=== PATIENT | male | born 1960 | race Caucasian/White ===

== ENCOUNTER 2018-11-17 16:17 | Inpatient (IN) ==
[~2018-11-17 16:17] MED LIST: ASPIRIN PO ONE; ASPIRIN PR ONE
[2018-11-17] MEDS ORDERED: LOPRESSOR ONE (16:25)
[2018-11-17] MEDS ORDERED: LOPRESSOR IV ONE (16:28)
[2018-11-17] MEDS ORDERED: ZOFRAN ONE (16:30)
[2018-11-17] MEDS ORDERED: G.I. COCKTAIL ONE (16:30)
[2018-11-17] MEDS ORDERED: DILAUDID ONE (16:30)
[2018-11-17] MEDS ORDERED: G.I. COCKTAIL PO ONE (16:32)
[2018-11-17] MEDS ORDERED: ZOFRAN IV ONE (16:32)
[2018-11-17] MEDS ORDERED: DILAUDID IV ONE ×2 (16:32→17:12)
[2018-11-17] MEDS ORDERED: NS 1,000 ML ONE (16:33)
[2018-11-17] MEDS ORDERED: NS 100 ML IV ONE (16:34)
[2018-11-17 16:42] LABS: BASO# 0.02 X1000 (0.0-0.2); BASO% 0.1 % (0.0-0.8); HEMATOCRIT 52.8 % (42.0-52.0); HEMOGLOBIN 17.6 g/dL (14.0-18.0); IMM GRAN# 0.03 X1000 (0.0-0.04); IMM GRAN% 0.2 % (0.0-0.5); LYMPH# 1.08 X1000 (1.2-3.4); LYMPH% 7.1 % (20.5-51.1); MCHC 33.3 g/dL (33-37); MCV 90.1 FL (81-99); MONO# 1.18 X1000 (0.11-0.59); MONO% 7.8 % (1.7-9.3); MPV 11.3 FL (7.4-10.4); NEUT# 12.84 X1000 (1.4-6.5); NEUT% 84.8 % (42.2-75.2); PLT 274 X1000 (130-400); RBC 5.86 XMIL (4.7-6.1); RDW 16.1 % (11.5-14.5); WBC 15.15 X1000 (4.8-10.8)
[2018-11-17 17:45] LABS: INR 1.34; PROTIME 17.3 Seconds (11.0-16.0); PTT 31.4 Seconds (22.3-41.8)
[2018-11-17 17:49] LABS: ALBUMIN 3.8 g/dL (3.5-5.0); CALCIUM 8.9 mg/dL (8.8-10.2); CREATININE 1.3 mg/dL (0.7-1.2); POTASSIUM 3.5 mmol/L (3.5-5.1); TOTAL BILIRUBIN 2.5 mg/dL (0.20-1.00); TOTAL PROTEIN 6.3 g/dL (6.3-8.3)
[2018-11-17] MEDS ORDERED: NS 1,000 ML IV ONE ×3 (17:57→23:01)
[2018-11-17] MEDS ORDERED: ZOSYN 3.375 GM in NS 50 ML IV ONE ×2 (17:57→22:00)
[2018-11-17 18:14] LABS: CK INDEX 1.8 (0.0-2.5); CK-MB 6.04 ng/mL (0.0-5.0)
[2018-11-17] MEDS ORDERED: LASIX IV ONE (18:17)
--- NOTE | 2018-11-17 18:23 | Diag Imaging Result Doc PS360 ---
EXAM: CHEST-2 VIEWS 11/17/2018 HISTORY: epigastric pain TECHNIQUE: PA and lateral chest COMMENT: There are platelike atelectatic changes in both lung bases. The heart size is enlarged. There may be small pleural effusions bilaterally. Compared to 12/24/2014 the atelectasis cardiomegaly and pleural effusions were not present. IMPRESSION: Cardiomegaly and small pleural effusions. Bibasilar atelectasis. Electronically signed by Reggie Parker 11/17/2018 6:21 PM
--- NOTE | 2018-11-17 18:59 | Diag Imaging Result Doc PS360 ---
EXAM: CT ABD/PELVIS W/IV CONT ONLY 11/17/2018 HISTORY: epigastric pain TECHNIQUE: This exam was performed using automated exposure control, adjustment of mA or kV according to patient size, and/or use of iterative reconstruction technique. COMMENT: The current examination is compared with the previous abdominal CTA of 02/19/2015. There are bilateral pleural effusions. There are apparent low density filling defects in the apex of the left ventricle which were not present on the previous examination and may represent mural thrombi. Further evaluation with echocardiography is recommended. There is subsegmental atelectasis in both lower lobes. There is ascites. The liver is inhomogeneous the hypodense particularly the right lobe. The spleen is not enlarged. The adrenal glands are not enlarged. The pancreas is unremarkable in appearance. The gallbladder is not distended. The abdominal aorta is not distended and there are a few calcifications in the aorta. There is no evidence of aneurysm. There is some questionable stenosis of the left main renal artery. There is occlusion of the superior mesenteric artery best seen on image 57. It is possible this is due to embolism. This was not the case on the previous study. There is some questionable mucosal thickening of jejunal loops in the left abdomen. There is increased mucosal enhancement in the proximal jejunum and duodenum compared to the remainder of the small bowel. There is no evidence of nephrolithiasis or hydronephrosis. There are some cortical scars present in the left kidney. There is anasarca with subcutaneous edema. There is no evidence of bowel obstruction. The hepatic changes, anasarca, pleural effusions and ascites were not present at the time the previous study. Pelvis: There is a fat-containing umbilical hernia. There is diverticulosis of the sigmoid colon without evidence of acute diverticulitis. There is no evidence of appendicitis. The urinary bladder is not distended. There is no evidence of significant adenopathy. There is a bone island in the sacrum. The appearance of the regional skeleton has not changed significantly since the previous study. IMPRESSION: Possible mural thrombi in the left ventricle. 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 Anasarca, pleural effusions, ascites, possible small bowel ischemia primarily affecting the distal jejunum and ileum. Hepatic steatosis. The findings were discussed with Angel Christian DO at 11/17/2018 6:57 PM. Electronically signed by Reggie Parker 11/17/2018 6:57 PM
--- NOTE | 2018-11-17 19:38 | PROVIDER DOCUMENTATION ---
This chart was entered by Didi Alvarenga Scribe, acting as scribe for Angel Christian DO. HPI-General Adult - General Chief Complaint: Abdominal Pain Stated Complaint: abd pain Time Seen by Provider: 11/17/18 16:33 Source: patient Allergies/Adverse Reactions: Patient Allergies Allergy/AdvReac Type Severity Reaction Status Date / Time No Known Allergies Allergy Verified 11/17/18 16:16 Home Medications: Home Medication List Medication Instructions Recorded Confirmed Last Taken Type NK [No Home Medications] 11/17/18 11/17/18 Unknown History - History of Present Illness -Gen Adult Nature of Presenting Problems: 58 y/o male presents to the ED via EMS with complaint of severe abdominal pain times two days worsening for the past 2-3 hours with bloating and lack of oral intake due to feeling of fullness. He states he had a small bowel movement this am with bright red blood. The patient has a history of umbilical hernia and history of peptic ulcer 6-8 years ago. The patient also gives a history of hypertension but he has not taken his medication for this for the past year. The patient's blood pressure was 160/128, pulse 141, and respiratory rate also elevated at 34 on arrival. No lung or cardiac history. NKDA. Location of Pain/Injury: reports: abdomen Pain Radiation: reports: no radiation Quality of Pain: reports: fullness Onset/Duration: reports: 2 days ago Timing: reports: getting worse Modifying Factors: worse with: eating, palpation Associated Symptoms: reports: loss of appetite. denies: cough, fever/chills, h eadaches, nausea, shortness of breath, vomiting Similar Symptoms Previously?: No Recently seen or treated by another doctor?: No Review of Systems - Adult - REVIEW OF SYSTEMS - ADULT Constitutional: denies: chills, fever, night sweats Eyes: reports: no symptoms reported Ears, Nose, Mouth & Throat: reports: no symptoms reported Cardiovascular: denies: chest pain, palpitations, syncope Respiratory: denies: hemoptysis, shortness of breath, wheezing Gastrointestinal: reports: abdominal pain. denies: hematemesis, diarrhea, nausea, vomiting Genitourinary: reports: no symptoms reported Musculoskeletal: reports: no symptoms reported Integumentary: reports: no symptoms reported Neurological: denies: syncope Psychiatric: reports: no symptoms reported Endocrine: reports: no symptoms reported Hematologic/Lymphatic: reports: no symptoms reported Allergic/Immunologic: reports: no symptoms reported All Other Systems: Reviewed and Negative Past History - Adult - PAST MEDICAL HISTORY-ADULT Review of Records: reports: Old Records Reviewed, Nursing Assessment Review, Medications Reviewed - IMMUNIZATION STATUS Childhood Immunizations: See Nurse Assessment Flu Vaccine: See Nurse Assessment - SOCIAL HISTORY Smoking: denies Physical Exam-General - PHYSICAL EXAM-ADULT Initial Vital Signs Reviewed: Yes - CONSTITUTIONAL General Appearance: alert, moderate distress - HEAD, EARS, NOSE, MOUTH & THROAT HENMT: normocephalic/atraumatic, moist mucous membranes, other (airway open, uvula midline) - NECK Neck: non-tender, full range of motion, supple, other (mild degenerative changes). negative: C-spine tenderness, lymphadenopathy - RESPIRATORY Respiratory: decreased breath sounds (bilateral bases), wheezing (expiratory which clears with deep breath) - CARDIOVASCULAR Cardiovascular: tachycardia, systolic murmur (1/6 apex), other (distant heart sounds, 1+ pitting edema bilateral lower extremities). negative: no JVD, gallop/S3, gallop/S4 - GASTROINTESTINAL (ABDOMEN) Abdominal Exam: abnormal bowel sounds (hypoactive), distended, rebound, tenderness (epigastrum, RUQ, and LUQ), hernia (central umbilical easily reduced) - LYMPHATIC Lymphatic: negative: cervical node tenderness, inguinal node tender - MUSCULOSKELETAL Back Exam: no vertebral tenderness, decreased range of motion (C-T-L spine), other (mild degenerative changes C-T-L spine) Extremity: normal range of motion (upper and lower extremities), no calf tenderness, pedal edema (1+ pitting bilateral lower extremities), other (right calf circumference 39 cm. and left 38 cm., Negative Homans sign bilaterally, no inner thigh pain, arthritis bilateral knees) - SKIN Integumentary: negative: diaphoresis - NEUROLOGIC Neurologic: grossly normal - PSYCHIATRIC Psych/Mental Status: anxious Progress - PLAN OF CARE/RESULTS Progress/Plan/Lab Results: Vital Signs - 8 hr 11/17/18 16:26 Pulse Rate 141 H Respiratory Rate 34 H Blood Pressure 160/128 O2 Sat by Pulse Oximetry 95 Orders Category Date Time Status Cardiac Monitoring DIRECTED Care 11/17/18 16:17 Active Oxygen Therapy- ED Nursing DIRECTED Care 11/17/18 16:17 Active Saline Loc NOW Care 11/17/18 16:17 Active CHEST-2 VIEWS [RAD] Stat Exams 11/17/18 16:[address] ABD/PELVIS W/IV CONT ONLY [CT] Stat Exams 11/17/18 16:32 Ordered CBC WITH ELECTRONIC DIFF [HEME] Stat Lab 11/17/18 16:18 Results CK PROFILE [SP CHEM] Stat Lab 11/17/18 16:18 Received COMPREHENSIVE METABOLIC PANEL [CHEM] Stat Lab 11/17/18 16:18 Received PRO B-NATRIURETIC PEPTIDE Stat Lab 11/17/18 16:18 Received PROTIME WITH INR [COAG] Stat Lab 11/17/18 16:18 Received PTT [COAG] Stat Lab 11/17/18 16:18 Received TROPONIN T Stat Lab 11/17/18 16:18 Received Aspirin Med 11/17/18 16:17 Discontinued 300 mg IL NOW ONE Aspirin Med 11/17/18 16:17 Discontinued 325 mg PO NOW ONE Hydromorphone [Dilaudid] Med 11/17/18 16:32 Once 1 mg IV NOW ONE Lido/Zaldivar Alk/Al&mg Hydrox [G.i. Cocktail] Med 11/17/18 16:32 Once 30 ml PO NOW ONE Metoprolol [Lopressor] Med 11/17/18 16:25 Discontinued 5 mg .ROUTE .STK-MED ONE Metoprolol [Lopressor] Med 11/17/18 16:28 Discontinued 5 mg IV NOW ONE Ondansetron [Zofran] Med 11/17/18 16:32 Once 4 mg IV NOW ONE CP/SOB/Palp >45 yrs of Age Stat Oth 11/17/18 16:17 Ordered EKG [EKG] Stat Ther 11/17/18 16:17 Ordered Result Diagrams: 11/17/18 16:18 11/17/18 17:10 - REASSESSMENT Reassessment #1 Status: improving (DISCUSSED LABS/CTSCAN WITH PATIENT --ADMIT FOR EMERGENT ASHVIN BERLIN MCDONALD) - EKG 1 Time of EKG reading by physician:: 16:22 EKG Read and Signed by:: Angel Christian EKG Interpretation (*Must complete 3 of following elements*): Abnormal Rate: 138 Rhythm: sinus tachycardia ST Wave: non-specific ST changes (and T wave changes, consider inferolateral ischemia) Comments: left atrial enlargement - CONSULTS/PCP/HOSPITALIST Notification #1 *Consult/PCP/Hospitalist*: DR GOLDSMITH SURGEON Time Discussed: 19:00 (ADMIT EMERGENT SURGERY) Departure - Departure Date of Disposition Decision: 11/17/18 Time of Disposition Decision: 19:37 DIAGNOSIS: Superior mesenteric artery thrombosis, Ischemic bowel disease Disposition: ADMITTED INPATIENT 09 Certified Medical Emergency: Emergent Condition: Stable - Critical Care Note This patient required my direct & personal management of CC.: No Attestation - Physician/ JEMAL Attestation Patient care was provided by Advanced Practice Provider:: No The physician spent face to face time with patient:: Yes Advanced Practice Provider documentation review:: Supervising physician onsite and consulted in the evaluation and care of this patient. The physician did have a face to face encounter with the patient. This chart was documented by the indicated scribe, (Didi Alvarenga, Armando) and accurately reflects the services I performed and decisions made by me, Angel Christian DO, as attested by the provider's signature.
--- NOTE | 2018-11-17 20:20 | HISTORY AND PHYSICAL ---
HISTORY OF PRESENT ILLNESS: Mr. Richmond is a 58-year-old gentleman who says that last night he began having was pretty severe abdominal pain that worsened through the night. He called 911 today and sought medical attention because of the progression of the pain. He presented to the emergency department at about 4:[address] scan was done revealing a clot in his heart and occlusion of his SMA. He has a regular rate and rhythm. He does have a history of congestive heart failure. He has seen Dr. Carrion in the past but has not seen him in over a year. He takes no medications at home. Denies any drug allergies. He does have a sense of fullness. He had a small bowel movement that was bloody this morning. He has a history of an umbilical hernia, history of peptic ulcer disease 6-8 years ago, and history of hypertension, but has not taken any medication in the past year. REVIEW OF SYSTEMS: As noted above. SOCIAL HISTORY: He denies smoking. He is . Denies illicit drug use. FAMILY HISTORY: Unknown. PHYSICAL EXAMINATION: VITAL SIGNS: His heart rate was first measured at 140. It is now 115. Respiratory rate is 34. Blood pressure 160/128. NECK: No cervical adenopathy. LUNGS: Bilateral breath sounds. HEART: Regular rate and rhythm. ABDOMEN: Soft. He is only mildly tender. EXTREMITIES: Femoral pulses are present. He does have 2+ pitting edema in both lower extremities. NEUROLOGIC: He is awake and alert and oriented. LABORATORY DATA: His white count is 15,000, hemoglobin 17.6, and hematocrit 52.8. Pro time is 17.3, INR 1.3. PTT 31. Sodium 147, carbon dioxide 17, BUN 23, creatinine 1.3. Total bilirubin 2.5. CPK was 330. ProBNP is 2630 to 370. His troponin level was less than 0.1. ASSESSMENT AND PLAN: I think this gentleman has thrown an embolus from his heart to his superior mesenteric artery, and he has an ischemic bowel. We will have to operate on him tonight to try to open the flow to his gut. I have discussed with him the gravity of the situation. He will contact his family. We will proceed tonight with the operation. cc: Meño Godinez MD
[2018-11-17] MEDS ORDERED: HEPARIN ONE ×2 (20:29)
[2018-11-17] MEDS ORDERED: NS 2,000 ML ONE (20:30)
[2018-11-17] MEDS ORDERED: VERSED ONE (21:09)
[2018-11-17] MEDS ORDERED: ZOSYN IV ONE (21:15)
[2018-11-17] MEDS ORDERED: METHYLENE BLUE 0.5% ONE (21:33)
[2018-11-17] MEDS ORDERED: PITRESSIN ONE (21:34)
[2018-11-17] MEDS ORDERED: ALBUMIN 25% ONE (21:35)
[2018-11-17] MEDS ORDERED: EPINEPHRINE 4 MG in NS 250 ML IV SCH ×2 (22:00→22:30)
[2018-11-17] MEDS ORDERED: HEPARIN (DOSE) ONE (22:01)
[2018-11-17] MEDS ORDERED: NORCURON ONE (22:01)
[2018-11-17] MEDS ORDERED: QUELICIN (DOSE) ONE (22:01)
[2018-11-17] MEDS ORDERED: AMIDATE ONE (22:02)
[2018-11-17] MEDS: LEVOPHED 8 MG in D5 1/2 NS 250 ML IV SCH (22:50)
[2018-11-17] MEDS ORDERED: DIPRIVAN 1% 1,000 MG/100 ML BOTTLE ONE (23:05)
[2018-11-17] MEDS ORDERED: EPINEPHRINE SYRINGE ONE (23:08)
[2018-11-17] MEDS ORDERED: CALCIUM CHLORIDE SYRINGE ONE (23:08)
--- NOTE | 2018-11-17 23:18 | OPERATIVE NOTE ---
PROCEDURE DATE: 11/17/2018 PROCEDURE: Exploratory laparotomy with superior mesenteric artery embolectomy. SURGEON: Meño Godinez MD. CRYPTOLOGICAL TECHNICIAN: Ani. PREOPERATIVE DIAGNOSES: 1. 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 2. Left ventricular thrombus. POSTOPERATIVE DIAGNOSES: 1. 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 2. Left ventricular thrombus. INDICATIONS: A 58-year-old who presented with less than 24 hours of severe abdominal pain. A CT scan done with contrast showed a large amount of clot within his left ventricle and an occlusion of his SMA a few centimeters from the takeoff. There was evidence of bowel ischemia on the CT scan. Preop lactate was none. DESCRIPTION OF PROCEDURE: With satisfactory general endotracheal anesthesia achieved, the abdomen was prepped and draped in a sterile fashion. A midline incision was made. We carried our incision through the subcutaneous tissue through the midline fascia. Upon entering the abdominal cavity, there was a lot of ascitic fluid that was aspirated. The bowel was obviously purple and diffusely ischemic. We entered the lesser sac. We then dissected at the inferior border of the pancreas. We placed a Bookwalter retractor to expose the area. We then dissected from right to left. We first identified the superior mesenteric vein. There were some additional branches that we had to ligate and divide or clip and divide in order to get to the SMA. During this dissection, the patient did arrest, and we had to stop temporarily and do compressions on the chest as well as compress the aorta. We did get a pulse back with a good pulse within the aorta, so we continued. As we continued, we further dissected the superior mesenteric artery until we could surround it with vessel loops proximally and distally. I failed to mention that we gave 8000 units of heparin upon entering the abdominal cavity. Obviously, this circulated for more than 10 minutes. We then made a transverse arteriotomy. No flow was present. We did extract the clot from the proximal end of the artery, and we obtained excellent pulsatile flow from proximal. We had to occlude that with a vessel loop. We then passed a 3 Janell distally and removed the clot until we retrieved no further clot and got dark back bleeding. We passed it again and got no further clot, and there was dark backbleeding, so we knew we had done what we could do. We then closed the transverse arteriotomy with a 5-0 Prolene stitch and then allowed flow. A good pulse was noted within the SMA. The small bowel immediately began to pink up and improve its color. We did not know whether it would all improve or not, so we purposely planned at that point to probably have to bring him back in 24 hours to re-evaluate his bowel and see what was alive or . The NG tube was noted to be appropriately positioned. There appeared to be satisfactory hemostasis in the area where we dissected. We then proceeded to close the peritoneum with a 2-0 chromic. We closed the fascia with a running #2 Prolene. We then irrigated out the subcutaneous tissue and closed the skin with galdino. A sterile dressing was applied. He was sent to the ICU bed in serious condition. cc: Meño Godinez MD
[2018-11-17 23:42] LABS: URINE SOURCE CATH
[2018-11-17 23:55] LABS: BILIRUBIN URINE NEGATIVE (NEGATIVE); BLOOD URINE MODERATE (NEGATIVE); COLOR YELLOW; GLUCOSE URINE NEGATIVE (NEGATIVE); KETONE URINE NEGATIVE (NEGATIVE); LEUKOCYTES URINE NEGATIVE (NEGATIVE); NITRITE URINE NEGATIVE (NEGATIVE); PH URINE 5.5; PROTEIN URINE 100 mg/dL (NEGATIVE); SP GRAVITY URINE 1.044; TURBIDITY URINE CLEAR (CLEAR); UROBILINOGEN URINE NORMAL (NORMAL)
[2018-11-17 23:56] LABS: UR EPITHELIAL CELLS <10 /HPF (<10); URINE BACTERIA NEGATIVE /HPF; URINE RBC <10 /HPF (<10); URINE WBC <10 /HPF (<10)
[2018-11-18 00:07] LABS: BASO# 0.04 X1000 (0.0-0.2); BASO% 0.3 % (0.0-0.8); EOS# 0.04 X1000 (0.0-0.7); EOS% 0.3 % (0.0-10.0); HEMATOCRIT 48.9 % (42.0-52.0); HEMOGLOBIN 15.2 g/dL (14.0-18.0); IMM GRAN# 0.04 X1000 (0.0-0.04); IMM GRAN% 0.3 % (0.0-0.5); LYMPH# 1.14 X1000 (1.2-3.4); LYMPH% 8.7 % (20.5-51.1); MCH 30.5 PG (27-31); MCHC 31.1 g/dL (33-37); MONO# 0.93 X1000 (0.11-0.59); MONO% 7.1 % (1.7-9.3); MPV 11.1 FL (7.4-10.4); NEUT# 10.94 X1000 (1.4-6.5); NEUT% 83.3 % (42.2-75.2); PLT 197 X1000 (130-400); RBC 4.99 XMIL (4.7-6.1); RDW 15.6 % (11.5-14.5); WBC 13.13 X1000 (4.8-10.8)
[2018-11-18] MEDS ORDERED: SODIUM BICARBONATE IV SCH ×3 (00:15→23:00)
[2018-11-18] MEDS ORDERED: 1/2 NS IV SCH ×3 (00:15→23:00)
[2018-11-18] MEDS ORDERED: NS 1,000 ML IV SCH (00:15)
[2018-11-18 00:17] LABS: ALLEN TEST NO; BE -20.2 mmoll (-3.0-3.0); BLOOD TYPE ARTERIAL; HCO3-(ACT) 9.1 mmoll (20.0-26.0); METHB 1.1 % (0.0-1.5); O2(CT) 18.3 mL/dL (15.0-23.0); O2HB 94.5 % (95.0-99.0); PCO2(98.6) 50 mmHg (35-45); PO2(98.6) 107 mmHg (60-100); SAMPLE BLOOD; SAO2 97.5 % (95.0-100.0); SRATE 12 BPM; THB 13.7 g/dL (11.5-17.4); TVOL 600 mL
[2018-11-18 00:20] LABS: MODALITY VENTILATOR; pH(98.6) 6.97 (7.35-7.45)
[2018-11-18 00:39] LABS: CALCIUM 7.5 mg/dL (8.8-10.2); CREATININE 1.5 mg/dL (0.7-1.2); POTASSIUM 4.3 mmol/L (3.5-5.1)
[2018-11-18] MEDS: SODIUM BICARBONATE IV SCH ×11 (00:56→22:29)
[2018-11-18] MEDS: 1/2 NS IV SCH ×11 (00:56→22:29)
[2018-11-18] MEDS: LEVOPHED 8 MG in D5 1/2 NS 250 ML IV SCH ×4 (02:09→17:51)
[2018-11-18] MEDS: DIPRIVAN 1% 1,000 MG/100 ML BOTTLE IV SCH ×4 (02:10→21:09)
[2018-11-18] MEDS: HEPARIN SUBQ SCH ×4 (02:29→22:37)
[2018-11-18 02:41] LABS: INR 2.2; PTT 48.9 Seconds (22.3-41.8)
[2018-11-18] MEDS: ZOSYN 3.375 GM in NS 50 ML IV SCH ×2 (04:01→10:02)
[2018-11-18 05:07] LABS: BASO# 0.01 X1000 (0.0-0.2); BASO% 0.1 % (0.0-0.8); HEMATOCRIT 44.4 % (42.0-52.0); HEMOGLOBIN 14.3 g/dL (14.0-18.0); IMM GRAN# 0.03 X1000 (0.0-0.04); IMM GRAN% 0.3 % (0.0-0.5); LYMPH# 1.61 X1000 (1.2-3.4); LYMPH% 15.5 % (20.5-51.1); MCHC 32.2 g/dL (33-37); MCV 93.1 FL (81-99); MONO# 0.87 X1000 (0.11-0.59); MONO% 8.4 % (1.7-9.3); MPV 11.1 FL (7.4-10.4); NEUT# 7.75 X1000 (1.4-6.5); NEUT% 74.7 % (42.2-75.2); PLT 204 X1000 (130-400); RBC 4.77 XMIL (4.7-6.1); RDW 15.1 % (11.5-14.5); WBC 10.37 X1000 (4.8-10.8)
[2018-11-18 05:29] LABS: ALLEN TEST YES; BE -8.6 mmoll (-3.0-3.0); BLOOD TYPE ARTERIAL; HCO3-(ACT) 18.2 mmoll (20.0-26.0); METHB 1.4 % (0.0-1.5); O2(CT) 20.3 mL/dL (15.0-23.0); O2HB 96.8 % (95.0-99.0); PCO2(98.6) 45 mmHg (35-45); PO2(98.6) 173 mmHg (60-100); SAMPLE BLOOD; SAO2 99.8 % (95.0-100.0); SRATE 12 BPM; THB 14.7 g/dL (11.5-17.4); TVOL 600 mL; pH(98.6) 7.23 (7.35-7.45)
[2018-11-18 05:34] LABS: CALCIUM 7.9 mg/dL (8.8-10.2); CREATININE 1.6 mg/dL (0.7-1.2); POTASSIUM 3.6 mmol/L (3.5-5.1)
[2018-11-18 05:39] LABS: MODALITY VENTILATOR
--- NOTE | 2018-11-18 08:06 | Diag Imaging Result Doc PS360 ---
EXAM: CHEST-PORTABLE 11/17/2018 HISTORY: vent/ NG placement TECHNIQUE: AP portable at 2333 COMMENT: There is an endotracheal tube with its tip at thoracic inlet and an NG tube with its tip in the stomach. There is cardiomegaly. There is increased retrocardiac opacity compared to 11/17/2018. There is some platelike opacity in the right lower lobe. IMPRESSION: Worsened atelectasis versus pneumonia left lower lobe. Electronically signed by Reggie Parker 11/18/2018 8:04 AM
--- NOTE | 2018-11-18 09:32 | GENERAL SURGERY PROGRESS NOTE ---
DATE: 11/18/2018 It is 8 o'clock in the morning. Mr. Richmond seems a bit improved this morning. His heart rate is 110, blood pressure is 128/63. That is only on Levophed. He is off epinephrine. His pupils are sluggish but reactive per the nurse. He has been sedated through the night. His urine output is listed at 410 mL. His laboratory data revealed white count of 10,400, hemoglobin 14.3, hematocrit 44. His prothrombin time was 26, INR 2.2, PTT 48.9. His gases this morning on 100% FiO2 revealed a pH of 7.23, pCO2 45, PO2 173, his base deficit is down to 8.6 from 20. His lactate is down to 5.5 from 12.9. His chemistry this morning reveals a sodium of 142, potassium 3.6, chloride 106, carbon dioxide of 19, BUN 27, creatinine 1.6. ASSESSMENT: Superior mesenteric artery embolus with reperfusion to his bowel. Through the night, he has required pressor support but currently his pressure is 120/80 and he is now off epinephrine. His acidosis has improved. His carbon dioxide level and chemistry is up to 19 from 12. His renal numbers are preserved essentially. His lactate has fallen from 12 to 5.5 on his gases. His pH is up to 7.23. PLAN: The plan today is to try to get him off Levophed. We will continue with IV fluids with half-normal saline with bicarb at 400 mL an hour rather than 500 as we will try to continue to perfuse his organs and hopefully get him off the Levophed today. We will cut his FiO2 down to 80%. We will reconsider him for exploration tonight as a 24 look to look at his bowel. cc: Meño Godinez MD
[2018-11-18 10:59] LABS: ALLEN TEST YES; BLOOD TYPE ARTERIAL; HCO3-(ACT) 23.3 mmoll (20.0-26.0); O2(CT) 19.2 mL/dL (15.0-23.0); O2HB 96.7 % (95.0-99.0); PCO2(98.6) 40 mmHg (35-45); PO2(98.6) 109 mmHg (60-100); SAMPLE BLOOD; SAO2 99.2 % (95.0-100.0); SRATE 12 BPM; TVOL 600 mL; pH(98.6) 7.37 (7.35-7.45)
[2018-11-18 11:02] LABS: MODALITY VENTILATOR
--- NOTE | 2018-11-18 11:10 | CARDIOLOGY CONSULTATION ---
DATE: 11/18/2018 REQUESTING PHYSICIAN: Consultation requested by Dr. Meño Godinez. REASON FOR CONSULTATION: Abnormal CAT scan, suspected myocardial infarction. CHIEF COMPLAINT: Abdominal discomfort. HISTORY: Mr. Richmond is a 58-year-old, male who presented to the emergency room yesterday at about 4 p.m. in the afternoon complaining of severe abdominal pain. He was evaluated by the ER doctor. At that time, his blood pressure was 160/128, his pulse was 141, respirations 34. They did a CT scan of the abdomen that showed possible mural thrombi in the left ventricle and occlusion of the superior mesenteric artery. There was possible small bowel ischemia. The patient was taken emergently to the operating room by Dr. Meño Godinez who performed an exploratory laparotomy with superior mesenteric artery embolectomy. I have reviewed his report. There was a suggestion of significant viability of the intestine and he is planning on doing a second operation to determine how much of the intestine is salvageable and how much is not. During the surgery, there was a brief episode of cardiac arrest, requiring chest compressions. He recuperated spontaneous circulation. I am seeing him in the intensive care unit at 10:30 in the morning of November 18. The patient is intubated. His nurse is at the bedside. I called his , Karley, and she gave me information over the telephone. PAST MEDICAL HISTORY: Positive for hypertension, cardiomegaly. At some point, he underwent a heart catheterization by Dr. Christie in [place], about 10 or 11 years ago. He had been treated by Dr. Carrion for some time and then he quit seeing him. SURGICAL HISTORY: He has not had any major operations. FAMILY HISTORY: Positive for father having congestive heart failure. However, he at the age of 89. 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 The patient has been to his for 22 years and he has 1 daughter from a previous marriage. He used to be smoker; however, he quit at the time of his second marriage. He used chewing tobacco for some time. REVIEW OF SYSTEMS: tells me that the patient has not complained of any pain in the upper abdomen or chest. On the other hand, she has observed that the patient is very sluggish daily. He is taking a lot of naps. He is acting as if he did not have any energy. The patient's usual weight, according to the , is around 179 pounds. MEDICATIONS: The patient is not taking any home medications. He quit taking medicines more than 2 or 3 years ago. At some point, he was seeing Dr. Dena Willis. PHYSICAL EXAMINATION: Right now, the patient is on Levophed. Blood pressure is 92/72, temperature 99.7 degrees, pulse 104, respirations 16. He is intubated, sedated. HEENT: Unremarkable. Chest: Symmetrical breath sounds. Heart sounds are regular, rhythmic. No gallop or murmur. Abdomen: Distended with incisional area which is covered with a dressing. Bowel sounds are markedly diminished. Extremities: Showed decreased pulses. No peripheral edema. Neurological Examination: He is completely sedated. LABORATORY DATA: Blood work, his white count today is 10,370, hemoglobin 14.3, hematocrit 44.4. PTT 26, PTT 48.9. His BUN and creatinine are 27 and 1.6. Blood gas, pH is 7.23, PO2 is 173, CO2 is 45. IMPRESSION: 1. Patient with evidence of a prior myocardial infarction involving the anterior apical wall of the left ventricle. This is by echocardiogram performed at the bedside. He has a large left ventricular apical thrombus. 2. Embolism to the mesenteric artery with bowel ischemia. 3. History of hypertension, untreated. 4. Medical noncompliance. 5. Systolic heart failure acute+chronic.(ischemic cardiomyopathy?) RECOMMENDATIONS: At this time, we will provide supportive care. The patient is to go back to the operating room, probably [facility], for a second-look and determine whether or not the bowel has to be resected. Following that, we will try to institute some sort of program to deal with his ischemic heart disease. I explained to the over the phone that his condition is critical, that he could during the second operation. However, there is really no other reasonable choice for him at this time. We will be following him. His EKG done today at 8:27 in the morning showed sinus rhythm with a diffuse T-wave abnormality across the precordial leads. cc: MD Meño Dickerson MD [facility]ERTesfaye
[2018-11-18] MEDS ORDERED: ALBUMIN 25% IV ONE ×2 (11:27→13:54)
[2018-11-18 13:21] LABS: INR 2.38; PROTIME 27.7 Seconds (11.0-16.0)
[2018-11-18 13:22] LABS: PTT 46.2 Seconds (22.3-41.8)
[2018-11-18 13:27] LABS: ALB/GLOB RATIO 1.4; ALBUMIN 2.6 g/dL (3.5-5.0); CALCIUM 7.7 mg/dL (8.8-10.2); CREATININE 2.2 mg/dL (0.7-1.2); POTASSIUM 3.5 mmol/L (3.5-5.1); TOTAL BILIRUBIN 2.16 mg/dL (0.20-1.00); TOTAL PROTEIN 4.4 g/dL (6.3-8.3)
[2018-11-18 15:55] LABS: ALLEN TEST NO; BE 0.1 mmoll (-3.0-3.0); BLOOD TYPE ARTERIAL; HCO3-(ACT) 24.9 mmoll (20.0-26.0); METHB 1.6 % (0.0-1.5); O2(CT) 16.2 mL/dL (15.0-23.0); O2HB 92.9 % (95.0-99.0); PCO2(98.6) 39 mmHg (35-45); PO2(98.6) 71 mmHg (60-100); SAMPLE BLOOD; SAO2 96.1 % (95.0-100.0); SRATE 12 BPM; THB 12.4 g/dL (11.5-17.4); TVOL 600 mL; pH(98.6) 7.41 (7.35-7.45)
[2018-11-18] MEDS ORDERED: NS 50 ML ONE (17:01)
[2018-11-18] MEDS ORDERED: ZOSYN ONE (17:01)
[2018-11-18] MEDS: ZOSYN 2.25 GM in NS 50 ML IV SCH (17:50)
[2018-11-18] MEDS: PROTONIX IV SCH (22:37)
[2018-11-19 00:40] LABS: MODALITY VENTILATOR
[2018-11-19] MEDS: LEVOPHED 8 MG in D5 1/2 NS 250 ML IV SCH ×2 (01:38→10:58)
[2018-11-19] MEDS: ZOSYN 2.25 GM in NS 50 ML IV SCH ×3 (01:39→17:58)
[2018-11-19] MEDS: 1/2 NS IV SCH ×2 (03:49→10:02)
[2018-11-19] MEDS: SODIUM BICARBONATE IV SCH ×2 (03:49→10:02)
[2018-11-19] MEDS: DIPRIVAN 1% 1,000 MG/100 ML BOTTLE IV SCH ×4 (03:49→17:59)
[2018-11-19 04:50] LABS: ALLEN TEST YES; BE 1.8 mmoll (-3.0-3.0); BLOOD TYPE ARTERIAL; HCO3-(ACT) 26.3 mmoll (20.0-26.0); METHB 1.2 % (0.0-1.5); O2(CT) 15.9 mL/dL (15.0-23.0); O2HB 94.6 % (95.0-99.0); PCO2(98.6) 37 mmHg (35-45); PO2(98.6) 79 mmHg (60-100); SAMPLE BLOOD; SAO2 97.4 % (95.0-100.0); SRATE 12 BPM; THB 11.9 g/dL (11.5-17.4); TVOL 600 mL; pH(98.6) 7.45 (7.35-7.45)
[2018-11-19 04:52] LABS: MODALITY VENTILATOR
[2018-11-19 04:53] LABS: BASO# 0.02 X1000 (0.0-0.2); BASO% 0.2 % (0.0-0.8); EOS# 0.02 X1000 (0.0-0.7); EOS% 0.2 % (0.0-10.0); HEMATOCRIT 34.9 % (42.0-52.0); HEMOGLOBIN 11.6 g/dL (14.0-18.0); IMM GRAN# 0.24 X1000 (0.0-0.04); IMM GRAN% 2.3 % (0.0-0.5); LYMPH# 1.32 X1000 (1.2-3.4); LYMPH% 12.5 % (20.5-51.1); MCH 29.8 PG (27-31); MCHC 33.2 g/dL (33-37); MCV 89.7 FL (81-99); MONO# 0.51 X1000 (0.11-0.59); MONO% 4.8 % (1.7-9.3); MPV 11.5 FL (7.4-10.4); NEUT# 8.41 X1000 (1.4-6.5); PLT 165 X1000 (130-400); RBC 3.89 XMIL (4.7-6.1); RDW 14.8 % (11.5-14.5); WBC 10.52 X1000 (4.8-10.8)
[2018-11-19 05:00] LABS: CREATININE 2.5 mg/dL (0.7-1.2); POTASSIUM 3.4 mmol/L (3.5-5.1)
[2018-11-19 05:01] LABS: ALB/GLOB RATIO 1.5; ALBUMIN 2.4 g/dL (3.5-5.0); TOTAL BILIRUBIN 3.47 mg/dL (0.20-1.00)
[2018-11-19 05:19] LABS: CALCIUM 6.9 mg/dL (8.8-10.2)
[2018-11-19 05:26] LABS: BANDS 4 % (0-1); LYMPHS 14 % (21-51); MONO 6 % (1-9); SEGS 74 % (42-75)
[2018-11-19 05:32] LABS: MAGNESIUM 1.3 mg/dL (1.5-2.7)
[2018-11-19] MEDS: HEPARIN SUBQ SCH ×2 (06:05→15:22)
[2018-11-19 06:06] LABS: CK-MB 10.86 ng/mL (0.0-5.0)
--- NOTE | 2018-11-19 06:53 | Diag Imaging Result Doc PS360 ---
EXAM: CHEST-1 VIEW HISTORY: vent TECHNIQUE: Portable chest single view COMPARISON: 11/17/2018 FINDINGS: No change in the endotracheal tube or nasogastric tube. The lungs are poorly expanded. The heart remains enlarged. There is pulmonary edema and small left pleural effusion. There may be an underlying infiltrate as well. This is more prominent than on the prior study. IMPRESSION: Mild interval worsening. Electronically signed by Maykel Martínez 11/19/2018 6:50 AM
--- NOTE | 2018-11-19 07:14 | EKG Report ---
Test Performed on : 11/18/2018 08:27:47 AM Test Reason : acute [place] Blood Pressure : / mmHG Vent. Rate : 106 BPM Atrial Rate : 106 BPM P-R Int : 158 ms QRS Dur : 094 ms QT Int : 370 ms P-R-T Axes : 034 014 160 degrees QTc Int : 491 ms Sinus tachycardia. Possible Left atrial enlargement Low voltage QRS ST & T wave abnormality, consider lateral ischemia Abnormal ECG When compared with ECG of 17-NOV-2018 16:22, (Unconfirmed) Nonspecific T wave abnormality has replaced inverted T waves in Inferior leads Inverted T waves have replaced nonspecific T wave abnormality in Anterior leads Confirmed by Jn COSBY, Patel ([id number]) on 11/19/2018 8:56:39 AM
--- NOTE | 2018-11-19 08:28 | EKG Report ---
Test Performed on : 11/19/2018 07:23:58 AM Test Reason : WI/apical thrombus Blood Pressure : / mmHG Vent. Rate : 106 BPM Atrial Rate : 106 BPM P-R Int : 158 ms QRS Dur : 096 ms QT Int : 366 ms P-R-T Axes : 035 004 149 degrees QTc Int : [address] & T wave abnormality, consider lateral ischemia Abnormal ECG When compared with ECG of 18-NOV-2018 08:27, (Unconfirmed) Nonspecific T wave abnormality has replaced inverted T waves in Anterior leads Confirmed by Jn COSBY, Patel ([id number]) on 11/19/2018 8:58:28 AM
--- NOTE | 2018-11-19 09:03 | ECHO REPORT ---
ORDER DATE: 11/18/2018 INTERPRETING PHYSICIAN: Dr. 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 M-MODE MEASUREMENTS: Right ventricle: cm. Left ventricle end diastole: 5.8 cm. Left ventricle end systole: 5.4 cm. Posterior wall: 0.9 cm. Interventricular septum: 0.9 cm. Left atrium: 3.6 cm. Aortic root: 3.5 cm. SUMMARY OF 2-DIMENSIONAL IMAGIN. This study was very difficult. The patient is on a ventilatory. He has had a laparotomy. 2. The left ventricle is enlarged, and it shows severe impaired function. The apex is akinetic. The apex demonstrated the presence of a 2.6 x 1.4 cm apical thrombus. This appears to be attached to the apex. I do not see mobility. The ejection fraction is grossly estimated at 20% at best. 3. Aortic valve opens normally. 4. Cardiac output appears to be very low. 5. Tricuspid valve shows mild degree of regurgitation. 6. The pulmonary pressure is estimated at 41 mmHg. 7. The pulmonic valve looks grossly normal. 8. Mitral valve opens normally. Color flow mapping is unremarkable. 9. Pulse wave Doppler of mitral inflow shows mild reversal of the E and the A ratio. 10.Tissue Doppler of septal and lateral mitral annulus is very low indicating significant left ventricular systolic dysfunction. 11.There is a very small pericardial effusion present. CONCLUSIONS: In summary, this study showed: 1. Presence of enlargement of the left ventricle with a 2.6 x 1.4 cm apical thrombus that appears to be well attached to the apex. It is not mobile. Ejection fraction is 20%. Unremarkable valvular structures. 2. Significant left ventricular diastolic dysfunction. 3. Pulmonary pressure is estimated at 43 mmHg. Clinical correlation is recommended. cc: MD Meño Dickerson MD
--- NOTE | 2018-11-19 09:59 | EKG Report ---
Test Performed on : 11/17/2018 4:22:01 PM Test Reason : abd px Blood Pressure : / mmHG Vent. Rate : 138 BPM Atrial Rate : 138 BPM P-R Int : 132 ms QRS Dur : 102 ms QT Int : 294 ms P-R-T Axes : 046 017 136 degrees QTc Int : 445 ms Sinus tachycardia. Left atrial enlargement ST & T wave abnormality, consider inferolateral ischemia Abnormal ECG No previous ECGs available Unconfirmed Result
--- NOTE | 2018-11-19 10:27 | CARDIOLOGY PROGRESS NOTE ---
DATE: 11/19/2018 CHIEF COMPLAINT: Abdominal pain. REASON FOR CONSULTATION: Abnormal findings on CT of the chest with thrombus in the heart. SUBJECTIVE: The patient remains intubated. His blood gases on 40% oxygen remain stable, pO2 is 79 mmHg, CO2 is 37, pH of 7.45. His BUN and creatinine have crept up to 40 and 2.5. His cardiac enzymes are slightly positive with a troponin of 0.490. His EKG from yesterday showed sinus tachycardia with diffuse repolarization abnormality. The patient is sedated and unresponsive at this time. His LFTs have come down a little bit, AST to 1690, ALT down to 1474. His hemoglobin level is 11.6. OBJECTIVE: Vital signs: Today, temperature is 99.5, pulse 103, blood pressure 105/72. He is sedated. The patient has NG tube and orotracheal tube. Chest: Diffusely diminished breath sounds. Heart sounds are regular and rhythmic. I do not hear gallop or murmur. His abdomen is distended. Bowel sounds are markedly diminished or absent. Extremities showed 2+ edema. Neurologic: He is not responsive. IMPRESSION: 1. The patient presented with abdominal pain secondary to small bowel or bowel ischemia. This was due to embolization of the mesenteric artery. He is status post embolectomy. This will be the second postoperative day. 2. Echocardiographic evidence of an anteroapical myocardial infarction with apical thrombus, probably the reason for the embolization in to the mesentery vessels. 3. The patient is with multiorgan dysfunction including respiratory failure, renal failure, shock liver. He also has systolic heart failure, severe, based on the echocardiogram that we looked at yesterday. RECOMMENDATIONS: At this point in time, we will continue supportive measures. I understand that Pulmonary has been consulted. Cardiac metzger, we have to wait for the patient to stabilize before doing any specific intervention to the cardiovascular system. At this time, we will continue with supportive measures as per Dr. Godinez. Prognosis is still very guarded. We will follow him. cc: MD Meño Dickerson MD
--- NOTE | 2018-11-19 11:25 | PULMONOLOGY CONSULTATION ---
DATE: 11/19/2018 REQUESTING PHYSICIAN: Dr. Meño Godinez. REASON FOR CONSULTATION: Critical care management, respiratory failure. HISTORY OF PRESENT ILLNESS: Mr. Wilson is a 58-year-old, white male with a prior history of tobacco use, hypertension, with previous cardiac followup who, by patient's 's report, has had increasing fatigue, shortness of breath with increasing edema over the last several months. The patient has not had recent medical followup despite her insistence. Prior echocardiogram in 2014 revealed a normal ejection fraction. The patient presented to the emergency room with a 2-day history of increasing abdominal pain, with an episode of hematochezia on the day of admission. He indicated to the emergency room that he had not taken blood pressure medicine for over a year. The patient was hypertensive and tachycardic upon arrival. 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 The patient was taken to the operating room on the evening of 11/17/[address] Meño Godinez. The bowel was cyanotic/diffusely ischemic upon entering the abdomen. He underwent a superior mesenteric artery embolectomy with significant improvement in the bowel color. The patient did have a brief cardiac arrest while on the operating table. Initial plans were to take the patient back for a second-look. An echocardiogram was performed which revealed a 2.6 x 1.4 cm apical thrombus in the left ventricle and an ejection fraction of 20%. PAST MEDICAL HISTORY/PROBLEM LIST: 1. Prior tobacco use but none for several years. 2. Hypertension. 3. Recent noncompliance with medication regimen. SOCIAL HISTORY: The patient is . His is a nurse. Per Dr. Garcia's notes, he has not smoked for several years. He has used oral tobacco. FAMILY HISTORY: Positive for heart failure. REVIEW OF SYSTEMS: Cannot be obtained. PHYSICAL EXAMINATION: General: Reveals a sedated, white male on mechanical ventilation. He remains on Levophed for blood pressure support. Vital Signs: BP 113/74, heart rate 106, respiratory rate 17, oxygen saturation 97%. HEENT: Pupils are equal but sluggish. Oropharynx appears clear. Neck: Supple. Chest: Reveals coarse rhonchi bilaterally. Cardiac Examination: Distant heart sounds. Normal S1, normal S2. Abdomen: Firm and no bowel sounds present. Extremities: Revealed generalized edema/anasarca. LABORATORIES: Chest x-ray reveals cardiomegaly with increasing pulmonary edema and a small left effusion. White blood count 10.52, hemoglobin 11.6, platelet count 165,000. Arterial blood gas reveals a pH of 7.45, pCO2 of 37, PO2 of 79. INR is 2.38. Sodium 138, potassium 3.4, chloride 101, bicarbonate 25, BUN 40, creatinine 2.5. Bilirubin 3.47, AST 1690, ALT 1474, total protein 4.0, albumin 2.4. IMPRESSION: A 58-year-old with ischemic bowel, acute hypoxemic respiratory failure, acute liver failure, acute renal failure, with septic shock. The prognosis of the bowel appears to be guarded. He has had some improvement in his initial lactate at 12.9. His bilirubin has increased from yesterday but his transaminases have shown some moderate improvement. His prognosis is guarded. His is at the bedside and she is aware that he is critically ill and that he may or may not survive this hospital stay. RECOMMENDATIONS: 1. Continue full ventilatory support pending improvement in clinical status. 2. Continue current antibiotic regimen. 3. Minor ventilatory adjustment have been made by this practitioner. 4. Continue anticoagulation. 5. Continue gastric acid suppression. 6. Anticipate the need for nutrition in the next 24 to 48 hours. 7. Prognosis is guarded. Family aware. cc: MD Meño Roth MD
[2018-11-19] MEDS ORDERED: SODIUM BICARBONATE IV SCH (11:45)
[2018-11-19] MEDS ORDERED: 1/2 NS IV SCH (11:45)
--- NOTE | 2018-11-19 13:02 | NEPHROLOGY CONSULTATION ---
DATE: 11/19/2018 REASON FOR ADMISSION: Severe abdominal pain. Brought in by wet mixer on Monday evening. REASON FOR CONSULT: Acute kidney injury. CONSULTING PHYSICIAN: Dr. Meño Godinez. HISTORY OF PRESENT ILLNESS: Mr. Richmond is a 58-year-old white male who presented to [facility] Emergency Department via ambulance after calling 911 during the night for progression of abdominal pain. In the emergency department, CT was completed with contrast revealing a clot in his heart and occlusion of his SMA. The patient with sinus rhythm, history of congestive heart failure. He was followed by Dr. Carrion in the past, though not seen in the past year. The patient during his hospitalization was subsequently taken to surgery by Dr. Godinez, revealing a left ventricular blood clot with occlusion to the superior mesenteric artery. In the operating room, his bowel was found to be cyanotic with diffuse ischemic area. He underwent a superior mesenteric artery embolectomy with a significant improvement in his bowel color. The patient had a brief episode of cardiac arrest requiring CPR on the operating table. He was brought to ICU. He remains on ventilatory support. He is found to have worsening of his renal status. He is also found to have elevated troponins and appears to have shock liver. The patient had an initial echocardiogram which revealed a 2.6 x 1.4 cm apical thrombus in the left ventricle. Ejection fraction at that time was 20%. The patient remains intubated. He is unable to give any review of systems. No family is available at the time the patient was seen. PAST MEDICAL HISTORY: Previous cardiac follow-up with Dr. Carrion. Noncompliance with medical regimen. Hypertension. Prior tobacco use, but none for several years. SOCIAL HISTORY: He is . His is a nurse. Quit smoking several years ago. FAMILY HISTORY: Positive for heart failure. SURGICAL HISTORY: Recent superior mesenteric artery embolectomy. ALLERGIES: Listed as no known drug allergies. MEDICATIONS: No known medications listed. REVIEW OF SYSTEMS: Unable to obtain per patient. No family is available. Most obtained from physician's report and CT scans and labs. PHYSICAL EXAMINATION: Vital Signs: Temperature 98.1, blood pressure 111/68, heart rate 103, respirations 14. General: This is a 58-year-old white male he remains with ventilatory support. LABORATORY DATA: Sodium 138, potassium 3.4, chloride 101, CO2 25, BUN 40, creatinine 2.5, glucose 115. His anion gap is 12, calcium 6.9, albumin 2.4. White count 10.52, hemoglobin 11.6, hematocrit 34.9 with a platelet count of 169,000. The patient had a previous plasma lactate of 9.4, not repeated since his admission. Troponins remain elevated. Total bilirubin of 3.47, AST 1690, ALT 1474. IMAGING: Chest x-ray this a.m. shows interval worsening. ARTERIAL BLOOD GAS: This a.m. pH 7.45, CO2 37, PO2 79, bicarb 26.3 with a lactate level of 2.3, down from 12.9 initially. The patient remains on 40% FiO2. ASSESSMENT AND PLAN: 1. 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 This appears to be multifactorial secondary to CT IV contrast and hypotension. 2. Cardiac arrest. He remains on epinephrine secondary to shock. Patient remains on IV fluids. We will decrease his sodium bicarbonate down to 50 mL an hour from 200. We will check urine electrolytes, monitor urine output. The patient remains in a 10+ positive L fluid balance. We will continue to keep an eye strict input and output. 3. Electrolytes. These remain stable. 4. Acid-base balance. The patient's anion gap has slowly closed. 5. Anemia. This remains low, but stable. He has orders for packed red blood cells. He has not received any transfusion. This remains stable. 6. Respiratory failure. Dr. Peterson has been consulted for monitoring. I would like to thank you for allowing us to follow with this patient. Dictated by LYDIA Shin for Geo Quick MD Face to face encounter, data reviewed, discussed with Jose Ramon Cade on 11/19/18. I agree with the above assessment and plan of care. cc: LYDIA Shin MD Robert C. Walker, MD [facility]ITALTesfaye
--- NOTE | 2018-11-19 17:24 | GENERAL SURGERY PROGRESS NOTE ---
DATE: 11/19/2018 TIME: It is 4:40 in the evening. Temperature is 99.3 degrees, heart rate is 112, blood pressure 118/70. His pupils are reactive. We have decreased his IV fluids significantly. DIAGNOSTIC STUDIES: White count today is 10,500, hemoglobin 11.6, hematocrit 34.9. PH 7.45, pCO2 is 37, PO2 is 79 and that is on 40% FiO2. Potassium 3.4, BUN 40, creatinine 2.5. His AST and ALT have improved today. CPKs have gone up. PLAN: The plan will be to continue our current therapy, we will continue to wean him off Levophed, and we will consider him for nutrition in the near future. He may require a Vas-Cath at some point, but I do not know yet. We will recheck his labs tomorrow. I appreciate the consultants' attention. cc: Meño Godinez MD
[2018-11-19 18:41] LABS: HEMATOCRIT 34.4 % (42.0-52.0); HEMOGLOBIN 11.5 g/dL (14.0-18.0)
[2018-11-19] MEDS: PROTONIX IV SCH (21:55)
[2018-11-19] MEDS: SODIUM CHLORIDE 0.9% INJ SCH (21:55)
[2018-11-20] MEDS: HEPARIN SUBQ SCH ×3 (01:00→17:12)
[2018-11-20] MEDS: ZOSYN 2.25 GM in NS 50 ML IV SCH ×3 (01:37→17:12)
[2018-11-20 03:13] LABS: HEMOGLOBIN 11.3 g/dL (14.0-18.0)
[2018-11-20 03:14] LABS: HEMATOCRIT 33.2 % (42.0-52.0)
[2018-11-20 04:45] LABS: HEMATOCRIT 33.8 % (42.0-52.0); HEMOGLOBIN 11.6 g/dL (14.0-18.0); MCH 30.3 PG (27-31); MCHC 34.3 g/dL (33-37); MCV 88.3 FL (81-99); MPV 11.6 FL (7.4-10.4); RBC 3.83 XMIL (4.7-6.1); RDW 14.9 % (11.5-14.5); WBC 10.91 X1000 (4.8-10.8)
[2018-11-20 04:56] LABS: ALLEN TEST YES; BE 0.5 mmoll (-3.0-3.0); BLOOD TYPE ARTERIAL; HCO3-(ACT) 25.3 mmoll (20.0-26.0); METHB 1.3 % (0.0-1.5); O2(CT) 13.5 mL/dL (15.0-23.0); O2HB 95.9 % (95.0-99.0); PCO2(98.6) 36 mmHg (35-45); PO2(98.6) 102 mmHg (60-100); SAMPLE BLOOD; SAO2 98.8 % (95.0-100.0); SRATE 12 BPM; THB 9.9 g/dL (11.5-17.4); TVOL 600 mL; pH(98.6) 7.44 (7.35-7.45)
[2018-11-20 04:57] LABS: MODALITY VENTILATOR
[2018-11-20 05:09] LABS: MAGNESIUM 1.5 mg/dL (1.5-2.7); PHOSPHORUS 5.3 mg/dL (2.7-4.5)
[2018-11-20] MEDS: DIPRIVAN 1% 1,000 MG/100 ML BOTTLE IV SCH ×4 (05:31→22:23)
[2018-11-20 05:48] LABS: ALB/GLOB RATIO 0.8; ALBUMIN 1.8 g/dL (3.5-5.0); CALCIUM 7.4 mg/dL (8.8-10.2); CREATININE 3.4 mg/dL (0.7-1.2); POTASSIUM 4.1 mmol/L (3.5-5.1); TOTAL BILIRUBIN 4.34 mg/dL (0.20-1.00)
--- NOTE | 2018-11-20 07:06 | EKG Report ---
Test Performed on : 11/20/2018 06:48:04 AM Test Reason : [place]/BOWEL ISCHEMIA/RESPIRATORY FAILURE Blood Pressure : / mmHG Vent. Rate : 098 BPM Atrial Rate : 098 BPM P-R Int : 158 ms QRS Dur : 098 ms QT Int : 378 ms P-R-T Axes : 034 019 200 degrees QTc Int : 482 ms Normal sinus rhythm. Possible Left atrial enlargement Low voltage QRS Nonspecific T wave abnormality Prolonged QT Abnormal ECG When compared with ECG of 19-NOV-2018 07:23, Nonspecific T wave abnormality, worse in Inferior leads Confirmed by Jn COSBY, Patel ([id number]) on 11/20/2018 8:44:32 AM
[2018-11-20] MEDS ORDERED: ALBUMIN 25% IV ONE (07:28)
[2018-11-20] MEDS ORDERED: LASIX IV ONE (07:28)
[2018-11-20] MEDS ORDERED: MAGNESIUM SULFATE 4 GM/S.W.I. 4 GM/100 ML IVPB IV ONE (07:29)
--- NOTE | 2018-11-20 07:38 | Diag Imaging Result Doc PS360 ---
CHEST-PORTABLE - 11/20/2018 INDICATION: respiratory failure COMPARISON: 11/19/2018 FINDINGS: Support lines and tubes are stable. Stable low lung volumes. Stable cardiomegaly and pulmonary vascular congestion. There is slight improved aeration of the left lung base with some increasing infiltrate or atelectasis at the right lung base. IMPRESSION: Probable shifting atelectasis in the lung bases. Overall little change from prior. Electronically signed by Isaias Frederick 11/20/2018 7:36 AM
--- NOTE | 2018-11-20 08:42 | NEPHROLOGY PROGRESS NOTE ---
DATE: 11/20/2018 TIME SEEN: 06. SUBJECTIVE: Mr. Richmond remains ventilator dependent. He is unresponsive on the breathing machine. OBJECTIVE: Vitals: His most recent vital signs, temperature 97.5 degrees, blood pressure 122/79, heart rate 102, respirations 15. He is on 40% FiO2. His last recorded saturation 98%. General: This is a 58-year-old white male resting quietly without any acute distress, ventilator dependent. Skin: Warm and dry. HEENT: Normocephalic, atraumatic. Conjunctiva is pale. He has HECTOR. Mucous membranes are dry. Neck: Supple. Trachea midline. He has positive JVD. Cardiovascular: Regular rate and rhythm. S4 is present. Lungs: Clear to auscultation anterior, though diminished posterior bases. Remains on ventilatory support. Abdomen: Quiet. Dressing is midline. Genitourinary: Not inspected, minimal urine out to Odell catheter. Extremities: Continues with 2 to 3+ lower extremity edema and upper extremity edema. He does have some facial swelling. Neurological: As mentioned above. INPUT AND OUTPUT: He has had 2232 in. He has had 410 out. He is 10 L positive in the last 72 hours. LABORATORY DATA: Sodium 137, potassium 4.1, chloride 99, CO2 22, BUN 54, creatinine 3.4, glucose 121. The patient's anion gap is 16, calcium is 7.4, phosphorus 5.3, albumin is 1.8, magnesium 1.5. White count 10.9, hemoglobin 11.6, hematocrit 23.8 with a platelet count of 130,000. Arterial blood gases: PH 7.44, CO2 36, PO2 102, bicarb 25.3, with a lactate of 2.5 on 40%. The patient continues with elevated cardiac enzyme troponin. Chest x-ray shows little changes. ASSESSMENT AND PLAN: 1. Acute kidney injury on CKD stage 2/3a. The patient's BUN and creatinine have elevated today. Creatinine 3.4, BUN of 54. The patient continues with minimal urine output. Secondary to these findings, we will go ahead and request Dr. Godinez to place a Vas-Cath with plans to start dialysis in the a.m. 2. Cardiac arrest. Patient remains on epinephrine secondary to shock. Remains on IV fluid boluses with IV fluid resuscitation. The patient does remain in a positive fluid balance. 3. Electrolytes and acid-base balance. These are acceptable. 4. Anemia. This is stable. 5. Respiratory failure. This is followed by Dr. Peterson. I would like to thank you for allowing us to follow with this patient. Dictated by LYDIA Shin for Geo Quick MD Face to face encounter, data reviewed, discussed with Jose Ramon Cade on 11/20/18. I agree with the above assessment and plan of care. cc: LYDIA Shin MD Robert C. Walker, MD [facility]
[2018-11-20 09:01] LABS: INR 1.4; PROTIME 18.2 Seconds (11.0-16.0)
[2018-11-20 09:18] LABS: PTT 41.1 Seconds (22.3-41.8)
--- NOTE | 2018-11-20 09:48 | CARDIOLOGY PROGRESS NOTE ---
DATE: 11/20/2018 CHIEF COMPLAINT: Abdominal pain, respiratory failure. SUBJECTIVE: Mr. Richmond remains intubated. He is intubated. Pressors have been turned off. OBJECTIVE: VITAL SIGNS: Blood pressure is 109/72, pulse 101, temperature 97.5 degrees, respirations 15. GENERAL: He is unresponsive. SKIN: Warm. He has diffuse edema in the upper and lower extremities, scrotum. ABDOMEN: Appears to be distended. Hypoactive bowel sounds. HEENT: Shows NG tube, orotracheal tube. CHEST: Symmetrical breath sounds. No rales noted. Chest x-ray has been done this morning and it shows some cardiomegaly, question of bilateral pleural effusions and some pulmonary congestion. CARDIOVASCULAR: Heart sounds are distant, regular, no gallop or murmur. Abdomen as I said is distended. EXTREMITIES: Show diffuse edema, 2+ to 3+. Pulses diminished. Telemetry shows runs of nonsustained ventricular tachycardia. EKG done yesterday shows sinus rhythm with rate of 106 beats per minute. Sinus tachycardia with T-wave abnormality in the lateral leads, 1, AVL, V4 through V6. EKG done this morning at 6:48, sinus rhythm, rate 98 beats per minute, again diffuse T-wave abnormality in lateral leads, 1, AVL and V4 through V6. Troponins have come down to 0.313. Albumin is very low at 1.8. Magnesium is 1.5. Sodium 137, potassium 4.1, BUN 54, creatinine 3.4. His AST has dropped to 533, ALT down to 994. Hemoglobin is 11.3, white count 10,910. Blood gases, pH 7.44, PO2 is 102, CO2 is 36. IMPRESSION: 1. Patient who presented with acute bowel ischemia, mesenteric embolism status post embolectomy. This will be the postoperative day #3. 2. Apical left ventricular thrombus, probably myocardial infarction at some point in the past complicated with congestive heart failure, systolic. Component of stress related cardiomyopathy on top of ischemic heart disease cannot be excluded. 3. History of medical noncompliance. 4. Acute renal failure with shock liver. RECOMMENDATIONS: At this time, I am going to give him an infusion of albumin, replace magnesium. Give him a big dose of Lasix and see if we can promote diuresis. He has diffuse third spacing. Prognosis remains extremely guarded. We will continue to follow. cc: MD Meño Dickerson MD MTDD
[2018-11-20] MEDS: 1/2 NS IV SCH (10:30)
[2018-11-20] MEDS: SODIUM BICARBONATE IV SCH (10:30)
--- NOTE | 2018-11-20 11:36 | GENERAL SURGERY PROGRESS NOTE ---
DATE: 11/20/2018 Mr. Richmond is now 3 days after SMA embolectomy. He remained sedated with propofol. Heart rate is 99, blood pressure 124/81. His IV rate in was 2232, out 410. LABORATORY DATA: White count 10,900, hemoglobin 11.3. PT 18.2, INR 1.4, PTT 41. PH 7.44, pCO2 of 36, PO2 of 102, base excess 0.5, lactate was 2.5, he is on 40% FiO2 and a PEEP of 8. BUN is up to 54, creatinine up to 3.4, potassium 4.1, his AST is down to 533, ALT down to 994. We will place a Vas-Cath today in preparation for dialysis, and then we may consider using IDPN while he is on dialysis. cc: Meño Godinez MD
[2018-11-20] MEDS ORDERED: LASIX IV SCH (14:00)
--- NOTE | 2018-11-20 14:30 | PULMONOLOGY PROGRESS NOTE ---
DATE: 11/20/2018 SUBJECTIVE: The patient remains on mechanical ventilation. His vasopressors have been weaned off. He is having some liquid brown/maroon stools. OBJECTIVE: Vital Signs: The patient has been afebrile for the last 24 hours. Blood pressure 109/68, heart rate 101, respiratory rate 14, oxygen saturation 99% on 40% FiO2. HEENT: Pupils are equal but sluggish. Oropharynx appears clear. Neck: Is supple. Chest: Reveals shallow breath sounds bilaterally. Cardiac exam: Regular rate. Normal S1, normal S2. Abdomen: Mildly distended but not overtly tense. Extremities: Revealed anasarca. LABORATORIES: Chest x-ray reveals cardiomegaly, vascular congestion, bilateral pleural effusions. Arterial blood gas reveals a pH 7.44, pCO2 of 36, PO2 of 102 with a lactate of 2.5. Sodium 137, potassium 4.1, chloride 99, bicarbonate 22, BUN 54, creatinine 3.4, bilirubin 4.34, AST 533, ALT 994, albumin 1.8. White blood count 10.91, hemoglobin 11.6, platelet count 130,000. IMPRESSION: A 58-year-old with left ventricular clot with embolic phenomenon to the superior mesenteric artery with subsequent ischemic bowel. The patient has multiorgan dysfunction with acute hypoxemic respiratory failure, acute liver failure, acute renal failure. The patient has bilateral pleural effusions. RECOMMENDATIONS: 1. Continue full ventilatory support. 2. Continue current antibiotic regimen. 3. Continue current ventilator settings. 4. Attempt diuresis with Lasix and albumin. 5. Anticipate the need for hemodialysis. 6. Prognosis is guarded and most likely depends on the outcome of the revascularized ischemic bowel. TIME SPENT CRITICAL CARE: 30+ minutes. cc: MD Meño Roth MD
[2018-11-20] MEDS: ALBUMIN 25% IV SCH ×2 (14:54→21:31)
[2018-11-20] MEDS: LASIX 200 MG in NS 25 ML IV SCH ×2 (16:17→23:11)
--- NOTE | 2018-11-20 20:03 | Diag Imaging Result Doc PS360 ---
EXAM: CHEST-PORTABLE HISTORY: vas cath placement TECHNIQUE: Portable chest single view COMPARISON: 5:38 AM FINDINGS: Interval placement of a right jugular line. The tip overlies the mid superior vena cava. No postprocedural pneumothorax. No other definite interval change. IMPRESSION: No postprocedural pneumothorax. Electronically signed by Maykel Martínez 11/20/2018 8:01 PM
[2018-11-20] MEDS: PROTONIX IV SCH (21:31)
[2018-11-20] MEDS: SODIUM CHLORIDE 0.9% INJ SCH (21:31)
[2018-11-21] MEDS: HEPARIN SUBQ SCH ×3 (00:20→16:58)
[2018-11-21] MEDS: DIPRIVAN 1% 1,000 MG/100 ML BOTTLE IV SCH ×4 (02:53→22:46)
[2018-11-21] MEDS: ZOSYN 2.25 GM in NS 50 ML IV SCH ×3 (02:54→16:59)
[2018-11-21 05:27] LABS: ALLEN TEST YES; BE 1.2 mmoll (-3.0-3.0); BLOOD TYPE ARTERIAL; HCO3-(ACT) 25.8 mmoll (20.0-26.0); METHB 0.8 % (0.0-1.5); O2(CT) 15.1 mL/dL (15.0-23.0); O2HB 93.8 % (95.0-99.0); PCO2(98.6) 41 mmHg (35-45); PO2(98.6) 72 mmHg (60-100); SAMPLE BLOOD; SAO2 96.4 % (95.0-100.0); SRATE 12 BPM; THB 11.4 g/dL (11.5-17.4); TVOL 600 mL; pH(98.6) 7.41 (7.35-7.45)
[2018-11-21 05:29] LABS: MODALITY VENTILATOR
[2018-11-21 06:12] LABS: HEMOGLOBIN 9.5 g/dL (14.0-18.0); MCH 29.8 PG (27-31); MCHC 32.8 g/dL (33-37); MCV 90.9 FL (81-99); MPV 12.1 FL (7.4-10.4); RBC 3.19 XMIL (4.7-6.1); RDW 15.2 % (11.5-14.5); WBC 8.45 X1000 (4.8-10.8)
[2018-11-21 06:40] LABS: ALB/GLOB RATIO 1.3; ALBUMIN 2.5 g/dL (3.5-5.0); CALCIUM 7.7 mg/dL (8.8-10.2); CREATININE 4.4 mg/dL (0.7-1.2); POTASSIUM 3.5 mmol/L (3.5-5.1); TOTAL BILIRUBIN 4.63 mg/dL (0.20-1.00); TOTAL PROTEIN 4.5 g/dL (6.3-8.3)
[2018-11-21] MEDS: 1/2 NS IV SCH (06:50)
[2018-11-21] MEDS: SODIUM BICARBONATE IV SCH (06:50)
--- NOTE | 2018-11-21 07:03 | EKG Report ---
Test Performed on : 11/21/2018 06:33:47 AM Test Reason : [place]/BOWEL ISCHEMIA/RESPIRATORY FAILURE Blood Pressure : / mmHG Vent. Rate : 084 BPM Atrial Rate : 084 BPM P-R Int : 178 ms QRS Dur : 110 ms QT Int : 434 ms P-R-T Axes : 021 005 172 degrees QTc Int : 512 ms Normal sinus rhythm. Possible Left atrial enlargement Low voltage QRS Incomplete left bundle branch block T wave abnormality, consider lateral ischemia Prolonged QT Abnormal ECG When compared with ECG of 20-NOV-2018 06:48, No significant change was found Confirmed by Jn COSBY, Patel ([id number]) on 11/21/2018 8:57:02 AM
[2018-11-21] MEDS ORDERED: NS 2,000 ML MISC PRN (07:19)
--- NOTE | 2018-11-21 07:27 | Diag Imaging Result Doc PS360 ---
CHEST-PORTABLE - 11/21/2018 INDICATION: respiratory failure COMPARISON: 11/20/2018 FINDINGS: Support lines and tubes are stable. Stable severe cardiomegaly. Stable low lung volumes. Stable retrocardiac consolidation/effusion. No new infiltrates. IMPRESSION: No change from prior. Electronically signed by Isaias Frederick 11/21/2018 7:25 AM
--- NOTE | 2018-11-21 08:57 | NEPHROLOGY PROGRESS NOTE ---
DATE: 11/21/2018 TIME SEEN: 0625. SUBJECTIVE: Mr. Richmond is currently ventilator-dependent with sedation. No acute distress apparent. OBJECTIVE: Vital Signs: Temperature 97.5 degrees, blood pressure 113/70, heart rate is 85, respirations are 12. He is on 40% FiO2. Last recorded saturation 98%. He has had 2121 in and 1290 out with 1 L to void. Laboratory Data: Sodium 139, potassium 3.5, chloride is 98, CO2 23, BUN 64, creatinine 4.4, glucose 103, anion gap of 18, calcium 7.7, albumin of 2.5. White count 8.45, hemoglobin 9.5, hematocrit 29, platelet count is 130,000. ABGs this a.m., pH 7.41, CO2 41, PO2 is 72, bicarb 25.8 on 40%, with a lactate of 1.7. Physical Examination: General: This is a 58-year-old, white male resting quietly in bed. He remains ventilator-dependent with sedation. He appears chronically ill with no acute distress. Skin is warm and dry. HEENT: Normocephalic, atraumatic. Conjunctivae pale. He has HECTOR. Mucous membranes are dry. Oral ET tube remains in place. Neck: Supple. Trachea midline. Positive JVD. Cardiovascular: He is regular rate and rhythm. S4 is present. Lungs: Clear to auscultation anterior. Abdomen: Quiet. Dressing is dry and intact. Extremities: Have 2 to 3+ lower extremity edema. Noted some facial swelling. Neurological: As mentioned above. ASSESSMENT AND PLAN: 1. 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 The patient's BUN and creatinine have continued to elevate today. Due to these findings, we had a Vas-Cath placed yesterday evening per Dr. Godinez. We will place the patient on sustained low-efficiency dialysis. He is to dialyze for [address] him on a 4 K. We will pull 4 L of ultrafiltration with a 27 bicarbonate. We will also evaluate labs in the morning to determine if patient needs this again for fluid volume control. 2. Fluid volume overload. The patient is in a positive liter fluid balance with plan for sustained low-efficiency dialysis today. Noted urine output has picked up in the last 24 hours. 3. Electrolytes and acid-base balance, with correction on dialysis. 4. Anemia. This remains stable. 5. Cardiac arrest. The patient is currently on epinephrine secondary to shock requiring intravenous fluids. 6. Respiratory failure, followed by Dr. Peterson. I would like to thank you for allowing us to follow with this patient. Dictated by LYDIA Shin for Geo Quick MD Face to face encounter, data reviewed, discussed with Jose Ramon Cade on 11/21/18. I agree with the above assessment and plan of care. cc: LYDIA Shin MD [facility]. Walker, MD [facility]
--- NOTE | 2018-11-21 09:36 | CARDIOLOGY PROGRESS NOTE ---
DATE: 11/21/2018 CHIEF COMPLAINT: Abdominal pain and edema. SUBJECTIVE: Mr. Richmond remains intubated. They are planning on starting dialysis today. He is really unresponsive. OBJECTIVE: VITAL SIGNS: Blood pressure 129/86, pulse 90, respirations 13, temperature is 96.1 degrees. GENERAL: He is not responsive. HEENT: He does have chemosis in both conjunctivae. He has generalized edema in the upper and lower extremities. CHEST: Shows diminished breath sounds bilaterally. HEART: Sounds are regular and rhythmic. No gallops or murmurs noted. ABDOMEN: Distended. Bowel sounds are markedly diminished. Pulses are diminished everywhere. BLOOD WORK: Hemoglobin 9.5, hematocrit 29%. Blood gases on 8-12 breaths 40% FIO2, pH 7.41, PCO2 41, PO2 72. Sodium 139, potassium 3.5, BUN 64, creatinine 4.4. Albumin is 2.5. IMPRESSION: 1. 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 2. Evidence of myocardial infarction with apical left ventricular thrombus. 3. Low cardiac output state. 4. Acute renal failure with multiorgan dysfunction including shock liver. 5. Respiratory failure. RECOMMENDATIONS: We will continue supportive therapy. Patient's prognosis is really very poor at this time. We will follow him as needed. cc: MD Meño Dickerson MD
[2018-11-21 10:41] LABS: ALLEN TEST YES; BE -0.5 mmoll (-3.0-3.0); BLOOD TYPE ARTERIAL; HCO3-(ACT) 24.6 mmoll (20.0-26.0); PCO2(98.6) 39 mmHg (35-45); PO2(98.6) 109 mmHg (60-100); SAMPLE BLOOD
[2018-11-21 10:43] LABS: MODALITY VENTILATOR
[2018-11-21] MEDS: D50W 250 ML, AMINOSYN 15% 500 ML, LIPOSYN 20% 250 ML MISC SCH ×3 (11:20)
[2018-11-21] MEDS ORDERED: ATIVAN IV ONE (12:28)
--- NOTE | 2018-11-21 18:22 | GENERAL SURGERY PROGRESS NOTE ---
DATE: 11/21/2018 He is 4 days after SMA embolectomy complicated by cardiac arrest. Today, his heart rate is 108, blood pressure is 120/60. His pupils continue reactive. He did dialyze today and 5 L were taken off. The NG tube has only put out 50. He did diurese better yesterday with albumin and Lasix. LABORATORY: Today white count is 8400, hemoglobin 9.5, hematocrit 29. PH 7.4, pCO2 of 30, PO2 of 109 and that is on FiO2 of 40%, PEEP of 8. Chemistry: Sodium 139, potassium 3.5, chloride 98, carbon dioxide 23, BUN 64, creatinine 4.4. His AST and ALT continued to normalize. ASSESSMENT: He continues to show slow progress. We will start giving him nourishment on dialysis by way of IDPN. We will continue with supportive care. Hopefully, we can consider weaning him off the ventilator in the not too-distant future. cc: Meño Godinez MD
--- NOTE | 2018-11-21 19:40 | PULMONOLOGY PROGRESS NOTE ---
DATE: 11/21/2018 SUBJECTIVE: The patient becomes arousable off propofol sedation. He does not follow commands. OBJECTIVE: Vital Signs: The patient has been afebrile for the last 24 hours. Blood pressure 128/81, heart rate 112, respiratory rate 27, oxygen saturation 97%. HEENT: Pupils are equal and reactive. Oropharynx appears clear. Neck: Supple. Chest: Chest reveals rhonchi bilaterally. Cardiac: S1, S2. Abdomen: Abdomen is mildly distended with no bowel sounds present. Extremities: Reveal 1+ peripheral edema. LABORATORIES: Chest x-ray reveals cardiomegaly, bilateral effusions with consolidation. No change. White blood count 8.45, hemoglobin 9.5, platelet count 130,000, sodium 139, potassium 3.5, chloride 98, bicarbonate 23, BUN 64, creatinine 4.4, bilirubin 4.6. AST 194, ALT 605. Arterial blood gas reveals a pH of 7.41, pCO2 of 41, pO2 of 72 with a lactate of 1.7. The patient did undergo a spontaneous breathing trial with a followup arterial blood gas of pH 7.40, pCO2 of 39, pO2 of 109. IMPRESSION: A 58-year-old with: 1. Emergent surgery for embolectomy to the superior mesenteric artery with bowel ischemia. 2. Left ventricular clot. 3. Status post cardiopulmonary arrest during surgical procedure. 4. Acute hypoxemic respiratory failure. 5. Acute liver failure. 6. Acute renal failure. 7. Bilateral pleural effusions. PLAN: 1. Continue spontaneous breathing trial. The patient's sedation will be held again later after a dose of Ativan. 2. Continue current antibiotic regimen. 3. Hemodialysis for volume withdrawal. 4. Prognosis is guarded. The patient has had a cardiac event and has had an ischemic bowel revascularized. Bowel prognosis and neural prognosis remain unknown at this juncture. TIME SPENT: Critical care management 30+ minutes. cc: MD Meño Roth MD
[2018-11-21] MEDS: SODIUM CHLORIDE 0.9% INJ SCH (22:46)
[2018-11-21] MEDS: PROTONIX IV SCH (22:46)
[2018-11-22] MEDS: HEPARIN SUBQ SCH ×3 (01:16→16:06)
[2018-11-22] MEDS: ZOSYN 2.25 GM in NS 50 ML IV SCH ×3 (01:17→17:07)
[2018-11-22 04:49] LABS: ALLEN TEST YES; BE -1.8 mmoll (-3.0-3.0); BLOOD TYPE ARTERIAL; HCO3-(ACT) 23.5 mmoll (20.0-26.0); O2(CT) 15.5 mL/dL (15.0-23.0); O2HB 96.4 % (95.0-99.0); PCO2(98.6) 39 mmHg (35-45); PO2(98.6) 111 mmHg (60-100); SAMPLE BLOOD; SAO2 99.3 % (95.0-100.0); THB 11.3 g/dL (11.5-17.4); pH(98.6) 7.38 (7.35-7.45)
[2018-11-22 04:53] LABS: MODALITY VENTILATOR
[2018-11-22] MEDS: DIPRIVAN 1% 1,000 MG/100 ML BOTTLE IV SCH ×2 (05:09→08:12)
[2018-11-22] MEDS: 1/2 NS IV SCH (05:09)
[2018-11-22] MEDS: SODIUM BICARBONATE IV SCH (05:09)
[2018-11-22 05:17] LABS: HEMATOCRIT 34.8 % (42.0-52.0); HEMOGLOBIN 11.4 g/dL (14.0-18.0); MCH 29.8 PG (27-31); MCHC 32.8 g/dL (33-37); MCV 91.1 FL (81-99); MPV 11.4 FL (7.4-10.4); RBC 3.82 XMIL (4.7-6.1); RDW 15.6 % (11.5-14.5); WBC 8.73 X1000 (4.8-10.8)
[2018-11-22 05:41] LABS: ALBUMIN 2.7 g/dL (3.5-5.0); CALCIUM 7.9 mg/dL (8.8-10.2); POTASSIUM 3.7 mmol/L (3.5-5.1); TOTAL BILIRUBIN 5.67 mg/dL (0.20-1.00); TOTAL PROTEIN 5.3 g/dL (6.3-8.3)
[2018-11-22] MEDS ORDERED: NS 2,000 ML MISC PRN (06:02)
--- NOTE | 2018-11-22 07:26 | Diag Imaging Result Doc PS360 ---
EXAM: CHEST-PORTABLE 11/22/2018 HISTORY: respiratory failure TECHNIQUE: AP portable at 0529 COMMENT: There is a double-lumen right internal jugular central venous catheter with its tip in the superior vena cava, an endotracheal tube with its tip at thoracic inlet, an NG tube which passes into the distal stomach, and a pH probe the tip of which is in the midesophagus. There is cardiomegaly. There is dense retrocardiac opacity and hazy interstitial pulmonary edema is present elsewhere. This has not changed appreciably since 11/21/2018. IMPRESSION: Mild pulmonary edema. Cardiomegaly. Atelectasis versus pneumonia left lower lobe. Electronically signed by Reggie Parker 11/22/2018 7:23 AM
--- NOTE | 2018-11-22 07:45 | EKG Report ---
Test Performed on : 11/22/2018 06:59:28 AM Test Reason : GA/BOWEL ISCHEMIA/RESPIRATORY FAILURE Blood Pressure : / mmHG Vent. Rate : 088 BPM Atrial Rate : 088 BPM P-R Int : 178 ms QRS Dur : 104 ms QT Int : 410 ms P-R-T Axes : 036 030 095 degrees QTc Int : 496 ms Normal sinus rhythm. Low voltage QRS Nonspecific T wave abnormality Prolonged QT Abnormal ECG When compared with ECG of 21-NOV-2018 06:33, No significant change was found Confirmed by Jn COSBY, Patel ([id number]) on 11/22/2018 8:39:45 AM
--- NOTE | 2018-11-22 08:53 | NEPHROLOGY PROGRESS NOTE ---
DATE: 11/22/2018 DATE AND TIME SEEN: 11/22/2018 at 0610. SUBJECTIVE: Mr. Richmond is resting quietly in bed. He is ventilator dependent with sedation. OBJECTIVE: MOST RECENT VITAL SIGNS: Last temperature 97.3 degrees 98.6 blood pressure 107/73, heart rate 96, respirations 14. He is currently on 40% FiO2. His last recorded saturation is 100%. He has had 1659. He has had 6310 out with 5 L on dialysis. LABORATORY DATA: Sodium is 140, potassium 3.7, chloride 104, CO2 21, BUN 41, creatinine 3, glucose 121. The patient's anion gap is 15, calcium is 7.9, albumin of 2.7. White count 8.73, hemoglobin 11.4, hematocrit 34.8 with a platelet count of 147,000. ABGs, pH 7.38, CO2 39, PO2 111, bicarb 23.5, plasma lactate of 1.4 on 40% FiO2. PHYSICAL EXAMINATION: General: This is a 58-year-old white male. He is currently resting in bed. He remains ventilator-dependent with sedation. He appears in no acute distress. Skin: Warm and dry. HEENT: Normocephalic, atraumatic. Conjunctiva is pale. He has HECTOR. Mucous membranes are dry. Oral ET tube in place. Neck: Supple. Trachea midline. He has positive JVD. Cardiovascular: He is regular rate and rhythm. Patient has an S4 present. Lungs: Diminished with coarse breath sounds. Abdomen: It is soft, nontender. Dressing is dry and intact. Hypo bowel sounds, quiet Genitourinary: Not inspected. Minimal urine out with dialysis assist. Extremities: Continues with 2 to 3+ lower extremity edema with some facial swelling. Neurological: As above. Integumentary: Patient has a Vas-Cath to the right IJ. ASSESSMENT AND PLAN: 1. Acute kidney injury on chronic kidney disease 2-3A. The patient's BUN and creatinine remain fairly stable. Started dialysis yesterday with some improvement noted. Hold sled today. rg 2. Electrolytes and acid-base balance with correction on dialysis. 3. Anemia. This remains stable. 4. Cardiac arrest. The patient remains on epinephrine. 5. Respiratory failure, followed by Dr. Peterson. I would like to thank you for allowing us to follow with this patient. Dictated by LYDIA Shin for Geo Quick MD Face to face encounter, data reviewed, discussed with Jose Ramon Cade on 11/23/18. I agree with the above assessment and plan of care. cc: LYDIA Shin MD Robert C. Walker, MD [facility]
[2018-11-22] MEDS ORDERED: D5W IV SCH (09:15)
[2018-11-22] MEDS ORDERED: SODIUM BICARBONATE IV SCH (09:15)
--- NOTE | 2018-11-22 11:29 | GENERAL SURGERY PROGRESS NOTE ---
DATE: 11/22/2018 SUBJECTIVE: Mr. Richmond is now 5 days after his SMA embolectomy complicated by cardiac arrest. OBJECTIVE: Today, his heart rate is 88, blood pressure 111/76, he is afebrile. Intake yesterday was 1659, output 6310. He is off the ventilator on CPAP and comfortable. DIAGNOSTIC STUDIES: White count 8700, hemoglobin 11.4, hematocrit 34.8. PH 7.3, a pCO2 of 39, PO2 of 111, base excess -1.8. BUN 41, creatinine 3.0, AST/ALT continue to fall. ASSESSMENT: He clinically continues to improve. His neurologic status is not changed yet. He is not following commands. He is tolerating CPAP. His gut is perfused. Kidney function has not return to normal as of yet. His liver functions continue to improve. PLAN: The plan is continued dialysis, IDPN on dialysis. Working toward extubation. We will consider using his gut once he is extubated. His neurological status remains uncertain. I did discuss the situation with his today. cc: Meño Godinez MD
[2018-11-22] MEDS ORDERED: LASIX IV SCH (13:15)
[2018-11-22 13:33] LABS: HEPATITIS PROFILE ACUTE SEE COMMENTS
[2018-11-22] MEDS: CLINIMIX E 4.25%-5% SOLUTION 1,000 ML IV SCH (13:43)
[2018-11-22] MEDS: LASIX 200 MG in NS 25 ML IV SCH ×2 (14:43→20:58)
[2018-11-22] MEDS: MORPHINE IV PRN ×3 (17:35→20:59)
--- NOTE | 2018-11-22 18:41 | PULMONOLOGY PROGRESS NOTE ---
DATE: 11/22/2018 SUBJECTIVE: The patient remains on mechanical ventilation. His blood pressure is marginal, but he is on no vasopressors. He opens his eyes to voice, but does not follow commands. OBJECTIVE: Maximum temperature in the last 24 hours was 98.8 degrees. Blood pressure 98/65, heart rate 87, respiratory rate 18, oxygen saturation 97%. HEENT: Pupils are equal. Oropharynx appears clear. Neck is supple. Chest reveals diminished breath sounds in both lung bases. Cardiac exam: S1, S2. Abdomen is firm but not tight. No bowel sounds present. Extremities reveal edema, but are warm to the touch. DIAGNOSTIC DATA: Chest x-ray reveals cardiomegaly, pulmonary edema, with atelectasis at the left base. LABORATORY DATA: White blood count 8.73, hemoglobin 11.4, platelet count 147,000. Sodium 140, potassium 3.7, chloride 104, bicarbonate 21, BUN 41, creatinine 3.0, bilirubin 5.67. Arterial blood gas pH 7.38, pCO2 of 39, pO2 of 111. IMPRESSION: A 58-year-old with: 1. Acute hypoxemic respiratory failure. 2. Status post emergent surgery for embolectomy of the superior mesenteric artery with bowel ischemia. 3. Left ventricular clot. 4. Status post cardiopulmonary arrest. 5. Acute renal failure. 6. Acute liver failure. 7. Bilateral pleural effusions. PLAN: 1. Discontinue Diprivan. Continue spontaneous breathing trial with anticipation of extubation today. 2. Hold hemodialysis today. This was discussed with Dr. Quick. The patient remains fluid overloaded, but his blood pressure is marginal and attempts are being made to keep the patient off vasopressor, with recent ischemic bowel. 3. Prognosis is guarded. Full outcome of neurologic status and bowel function currently unknown. Time spent in critical care management 30-plus minutes. cc: MD Meño Roth MD
[2018-11-22] MEDS: ZOFRAN IV PRN (20:59)
[2018-11-22] MEDS: PROTONIX IV SCH (21:07)
[2018-11-22] MEDS: SODIUM CHLORIDE 0.9% INJ SCH (21:07)
[2018-11-23] MEDS: LASIX 200 MG in NS 25 ML IV SCH (01:05)
[2018-11-23] MEDS: HEPARIN SUBQ SCH ×3 (01:06→17:51)
[2018-11-23] MEDS: ZOSYN 2.25 GM in NS 50 ML IV SCH ×3 (01:08→17:51)
[2018-11-23] MEDS: CLINIMIX E 4.25%-5% SOLUTION 1,000 ML IV SCH ×2 (05:27→13:42)
[2018-11-23] MEDS: MORPHINE IV PRN ×5 (05:27→21:30)
[2018-11-23 05:35] LABS: HEMATOCRIT 34.7 % (42.0-52.0); HEMOGLOBIN 11.4 g/dL (14.0-18.0); MCH 30.1 PG (27-31); MCHC 32.9 g/dL (33-37); MCV 91.6 FL (81-99); MPV 11.9 FL (7.4-10.4); RBC 3.79 XMIL (4.7-6.1); RDW 15.5 % (11.5-14.5); WBC 10.83 X1000 (4.8-10.8)
[2018-11-23 05:36] LABS: ALLEN TEST YES; BE -2.5 mmoll (-3.0-3.0); BLOOD TYPE ARTERIAL; HCO3-(ACT) 22.9 mmoll (20.0-26.0); METHB 1.2 % (0.0-1.5); O2(CT) 18.5 mL/dL (15.0-23.0); O2HB 95.9 % (95.0-99.0); PCO2(98.6) 48 mmHg (35-45); PO2(98.6) 108 mmHg (60-100); SAMPLE BLOOD; THB 13.6 g/dL (11.5-17.4); pH(98.6) 7.31 (7.35-7.45)
[2018-11-23 05:37] LABS: MODALITY COOL AEROSOL
[2018-11-23 06:14] LABS: ALBUMIN 2.7 g/dL (3.5-5.0); CALCIUM 8.6 mg/dL (8.8-10.2); CREATININE 3.5 mg/dL (0.7-1.2); TOTAL BILIRUBIN 4.99 mg/dL (0.20-1.00); TOTAL PROTEIN 5.3 g/dL (6.3-8.3)
--- NOTE | 2018-11-23 07:52 | Diag Imaging Result Doc PS360 ---
CHEST-PORTABLE - 11/23/2018 INDICATION: respiratory failure COMPARISON: 11/22/2018 FINDINGS: The endotracheal tube and temperature probe have been removed. Stable nasogastric tube in the stomach. Stable right central line. Stable severe cardiomegaly and pulmonary vascular congestion. Stable severely low lung volumes. Stable hazy infiltrates or atelectasis centrally and in the lung bases. No pneumothorax or large pleural effusion. IMPRESSION: Patient extubated. Otherwise no change from prior. Electronically signed by Isaias Frederick 11/23/2018 7:49 AM
--- NOTE | 2018-11-23 08:17 | Diag Imaging Result Doc PS360 ---
EXAM: CT HEAD W/O CONTRAST HISTORY: patient suffered mesenteric artery embolism TECHNIQUE: CT head without contrast COMPARISON: None. FINDINGS: No parenchymal hemorrhage. No epidural or subdural hematoma. No subarachnoid hemorrhage. No mass identified on this noncontrasted exam. No hydrocephalus. No sinus opacification. IMPRESSION: No hemorrhage. Negative brain CT without contrast. This exam was performed using automated exposure control, adjustment of mA or kV according to patient size, and/or use of iterative reconstruction technique. Electronically signed by Maykel Martínez 11/23/2018 8:15 AM
[2018-11-23] MEDS ORDERED: HEPARIN IV PRN (08:26)
[2018-11-23] MEDS ORDERED: NS 2,000 ML MISC PRN (08:26)
--- NOTE | 2018-11-23 08:36 | CARDIOLOGY PROGRESS NOTE ---
DATE: 11/23/2018 CHIEF COMPLAINT: Abdominal pain, cardiac arrhythmia. SUBJECTIVE: Mr. Richmond has been extubated. He is verbally responsive. He is mumbling, but some of the words are unintelligible. He moves more the left side of his body and less the right hand. He seems to be a bit uncomfortable. His chest x-ray done today has not been officially reported, but it does show cardiomegaly with some pleural effusion, elevation of both diaphragms, decreased lung volumes, some atelectasis on the left side. Central line is present. OBJECTIVE: Vital signs: Blood pressure is 117/87, pulse 103, respirations 13, temperature is 97.1. As I said, he responds to voice and to pain. He seems to move more the left side. HEENT is otherwise unremarkable. Chest: Diminished breath sounds bilaterally. Heart sounds are regular and rhythmic. No gallop or murmur. His abdomen is slightly tense, distended. Bowel sounds diminished. Extremities showed 2 to 3+ edema. Neurologic: As described. I do not see skin rashes. Telemetry shows episode of nonsustained ventricular tachycardia. DIAGNOSTIC DATA: Blood gases on cool aerosol this morning showed FiO2 of 35%, pH of 7.31, pO2 of 108, pCO2 of 48. His electrolytes are as follows: Sodium 138, potassium 4.0, BUN is 54, creatinine 3.5. Carbon dioxide is 23, chloride 100. His electrocardiograms up until 11/21/2018 showed sinus rhythm with T wave abnormality in the lateral leads. IMPRESSION: 1. The patient suffered acute ischemic bowel due to embolization into the mesenteric artery. 2. Suspected apical anterior myocardial infarction, large, with apical thrombus. 3. Acute renal failure. 4. Question of encephalopathy versus stroke. 5. Respiratory failure seems to be improving. RECOMMENDATIONS: At this time, we will observe the patient. I believe we ought to do a CT scan of the head once his respiratory status is more stable to make sure he has not suffered an embolic stroke, which given the fact that he embolized the mesenteric artery and he has an apical thrombus is highly likely. We need to discuss with Dr. Godinez about initiation of full anticoagulation on him. I think we ought to make sure there is no lesion in the brain before initiating full anticoagulation. Regarding the management of his left ventricular dysfunction, we will do so once he is more stable from the metabolic viewpoint. We cannot use CASSANDRA inhibitors yet because of the acute renal failure and probably beta blockers at this time given his tenuous blood pressure are probably not a great idea, but we may have to start him on something within the next 24 to 48 hours. cc: MD Meño Dickerson MD
[2018-11-23] MEDS: D50W 250 ML, AMINOSYN 15% 500 ML, LIPOSYN 20% 250 ML MISC SCH ×3 (11:20)
--- NOTE | 2018-11-23 14:43 | PULMONOLOGY PROGRESS NOTE ---
DATE: 11/23/2018 SUBJECTIVE: The patient responds to voice. He mumbles incoherently. He has no increased work of breathing. Blood pressure 129/75, heart rate 106, respiratory rate 9, oxygen saturation 100%. He currently is on hemodialysis. He is on no vasopressor support. Intake 2212; output 1275. Urine output for the last 24 hours 1125. OBJECTIVE: HEENT: Pupils are equal and reactive. Oropharynx appears clear. Neck: Supple. Chest: Reveals decreased breath sounds in the bases with occasional rhonchi. Cardiac exam: S1, S2. Abdomen: Softer. No definite bowel sounds. Extremities: Warm to the touch. LABORATORIES: Arterial blood gas on cool aerosol with pH 7.31, pCO2 of 48, PO2 of 108. White blood count 10.83, hemoglobin 11.4, platelet count 158,000. Sodium 138, potassium 4.0, chloride 100, bicarbonate 23. BUN 54, creatinine 3.5, bilirubin 4.99. AST 58, ALT 64. X-RAYS: Chest x-ray reveals cardiomegaly with bibasilar effusions and edema. No change. CT scan of the brain reveals no acute changes. IMPRESSION: A 58-year-old with: 1. Acute hypoxemic respiratory failure. 2. Bilateral pleural effusions. 3. Left ventricular clot. 4. Status post cardiopulmonary arrest. 5. Acute renal failure. 6. Acute liver failure. 7. Status post emergent surgery due to status post emergent surgery to remove an embolus from the superior mesenteric artery associated with bowel ischemia. 8. Encephalopathy. DISCUSSION: A 58-year-old with issues as outlined above. Urine output has increased. Blood pressure has remained stable. Mental status is marginally improved. His liver functions continue to improve, and his bilirubin is decreasing. He is doing well off mechanical ventilation. PLAN: 1. Continue oxygen and wean as tolerated. 2. Hemodialysis planned today. Hypotension to be everted if possible. 3. Continue Clinimix. We will increase rate today. We will delay using the gut until approved by surgery. cc: MD Meño Roth MD
--- NOTE | 2018-11-23 17:37 | GENERAL SURGERY PROGRESS NOTE ---
DATE: 11/23/2018 He is now 6 days after his SMA embolectomy complicated by cardiac arrest intraoperatively. Mr. Richmond is now extubated, breathing comfortably. His pupils are small. He is making some noises and moving all extremities. He is not making any purposeful communication as of yet. He is afebrile. Heart rate is 102, blood pressure 137/94. Intake 2212, output 1275. NG tubes 150. LABS: White count 10,800, hemoglobin 11.4, hematocrit 34.7. PH 7.31, pCO2 of 48, pO2 of 108. That is on a 35% mask. Sodium 138, potassium 4.0, chloride 100, carbon dioxide 23, BUN 54, creatinine 3.5 today. LFTs continued to improve. Albumin is 2.7. PLAN: To start full anticoagulation tomorrow and it is okay with me to start attempting some tube feedings over the weekend to see if his GI tract tolerates it. We will continue with dialysis with IDPN. He continues to slowly make progress. [facility] will cover in my absence. cc: Meño Godinez MD
--- NOTE | 2018-11-23 19:10 | NEPHROLOGY PROGRESS NOTE ---
DATE: 11/23/2018 SUBJECTIVE: He is off the ventilator now. He is more alert, but he is not really able to verbalize to me. OBJECTIVE: Blood pressure 119/82, heart rate 104, respirations 12, afebrile. Intake 2.2 L, output 1.3 L, with 1.1 L of urine output. On physical exam, no acute distress. Skin is warm and dry. Conjunctivae are pink. Neck veins are not distended. Heart is regular. Shallow, no crackles. Abdomen is distended but nontender. Bowel sounds are not appreciated. Extremities have 2+ edema. No clubbing or cyanosis. IMPRESSION: Acute kidney injury. Good urine output. PLAN: SLED today, but we will manage his ultrafiltration in order to avoid hypotension. Goal 2-3 L ultrafiltration as tolerated; 2K bath, 27 bicarbonate. cc: MD Meño Lopez MD
[2018-11-23] MEDS: PROTONIX IV SCH (21:13)
[2018-11-24] MEDS: HEPARIN SUBQ SCH ×3 (00:43→17:15)
[2018-11-24] MEDS: CLINIMIX E 4.25%-5% SOLUTION 1,000 ML IV SCH ×2 (00:43→12:17)
[2018-11-24] MEDS: ZOSYN 2.25 GM in NS 50 ML IV SCH ×3 (02:25→18:18)
[2018-11-24 05:04] LABS: ALLEN TEST YES; BLOOD TYPE ARTERIAL; HCO3-(ACT) 19.4 mmoll (20.0-26.0); O2HB 95.7 % (95.0-99.0); PO2(98.6) 108 mmHg (60-100); SAMPLE BLOOD; SAO2 98.4 % (95.0-100.0); THB 16.3 g/dL (11.5-17.4)
[2018-11-24 05:05] LABS: MODALITY VENTIMASK
[2018-11-24 05:06] LABS: PCO2(98.6) 56 mmHg (35-45)
[2018-11-24 05:33] LABS: HEMATOCRIT 36.3 % (42.0-52.0); HEMOGLOBIN 11.8 g/dL (14.0-18.0); MCH 29.7 PG (27-31); MCHC 32.5 g/dL (33-37); MCV 91.4 FL (81-99); MPV 11.3 FL (7.4-10.4); RBC 3.97 XMIL (4.7-6.1); RDW 15.6 % (11.5-14.5); WBC 15.26 X1000 (4.8-10.8)
[2018-11-24 06:40] LABS: PHOSPHORUS 4.5 mg/dL (2.7-4.5)
[2018-11-24 06:53] LABS: ALB/GLOB RATIO 1.1; ALBUMIN 2.9 g/dL (3.5-5.0); CALCIUM 8.6 mg/dL (8.8-10.2); CREATININE 2.6 mg/dL (0.7-1.2); POTASSIUM 5.1 mmol/L (3.5-5.1); TOTAL BILIRUBIN 4.33 mg/dL (0.20-1.00); TOTAL PROTEIN 5.6 g/dL (6.3-8.3)
--- NOTE | 2018-11-24 07:35 | Diag Imaging Result Doc PS360 ---
CHEST-PORTABLE - 11/24/2018 INDICATION: respiratory failure COMPARISON: 11/23/2018 FINDINGS: Support lines and tubes are stable. Stable severe cardiomegaly. There has been significant improvement in the patchy bilateral airspace infiltrates. No pneumothorax or large pleural effusion. IMPRESSION: Significant improvement in the bilateral infiltrates. No new abnormality. Electronically signed by Isaias Frederick 11/24/2018 7:33 AM
[2018-11-24] MEDS ORDERED: SODIUM BICARBONATE 8.4% IV PUSH ONE (08:15)
[2018-11-24] MEDS: MORPHINE IV PRN ×2 (09:11→18:17)
[2018-11-24] MEDS ORDERED: HEPARIN IV PRN (09:33)
[2018-11-24] MEDS ORDERED: NS 2,000 ML MISC PRN (09:33)
[2018-11-24 10:58] LABS: ALLEN TEST YES; BE -3.7 mmoll (-3.0-3.0); BLOOD TYPE ARTERIAL; METHB 1.3 % (0.0-1.5); O2HB 96.6 % (95.0-99.0); PCO2(98.6) 42 mmHg (35-45); PO2(98.6) 143 mmHg (60-100); SAMPLE BLOOD; SAO2 99.7 % (95.0-100.0); THB 11.6 g/dL (11.5-17.4); pH(98.6) 7.33 (7.35-7.45)
[2018-11-24 10:59] LABS: MODALITY BI PAP
--- NOTE | 2018-11-24 11:21 | PROGRESS NOTE ---
DATE: 11/24/2018 SUBJECTIVE: Mr. Richmond is status post superior mesenteric artery embolectomy per Dr. Godinez. He is now extubated but still needs help with his pulmonary function. He is being dialyzed via a right internal jugular Vas-Cath this morning. His heart rate is 96, blood pressure 124/81, O2 saturation is 100% on 40% O2. He is afebrile. He is getting Clinimix for nutrition. He is also receiving IV antibiotics. His white blood cell count is 15, hematocrit is 36%. BUN and creatinine 38 and 2.6. His base deficit is 7. Chest x- ray this morning suggests significant improvement in the bilateral infiltrates. PLAN: Continue supportive care. cc: MD Meño Sierra MD
[2018-11-24] MEDS: D50W 250 ML, AMINOSYN 15% 500 ML, LIPOSYN 20% 250 ML MISC SCH ×3 (11:58)
--- NOTE | 2018-11-24 15:49 | PULMONOLOGY PROGRESS NOTE ---
DATE: 11/24/2018 SUBJECTIVE: The patient is awake. He attempts to speak, but is incoherent. OBJECTIVE: Vital Signs: The patient has been afebrile for the last 24 hours. He remains off vasopressors. BP 127/84, heart rate 94, respiratory rate 15, oxygen saturation 40%. HEENT: Pupils are equal and reactive. Oropharynx is clear. Neck: Supple. Chest: Reveals bibasilar crackles with occasional rhonchi bilaterally. Cardiac exam: S1, S2. Abdomen: Softer with rare bowel sounds. Extremities: Reveal decreasing edema. LABORATORIES: 1. Arterial blood gas reveals a pH of 7.20, pCO2 of 56, PO2 of 108 on Venturi mask. 2. Arterial blood gas #2 on BiPAP reveals a pH of 7.33, pCO2 of 42, PO2 of 143. 3. Chest x-ray reveals significant decrease in bilateral infiltrates and edema with stable cardiomegaly. 4. White blood count 15.26, hemoglobin 11.8, platelet count 183,000. Sodium 139, potassium 5.1, chloride 107 bicarbonate 20, BUN 38, creatinine 2.6, glucose 151, bilirubin 4.33, AST 45, ALT 275. IMPRESSION: A 58-year-old with: 1. Acute hypoxemic respiratory failure. 2. Acute hypercapnic respiratory failure. 3. Left ventricular clot. 4. Status post emergent surgery for embolectomy of the superior mesenteric artery which led to bowel ischemia. 5. Status post cardiac arrest. 6. Acute renal failure. 7. Acute liver failure. 8. Encephalopathy. RECOMMENDATIONS: 1. A 58-year-old with issues as outlined above. The patient has had increase in respiratory acidosis/hypercapnia this morning without clear reason. The patient's chest x-ray is improved, and he has not received sedation. We will use BiPAP p.r.n. as needed. The patient remains hemodynamically stable and liver function continues to improve. 2. Attempt tube feeds. If these are not tolerated, we will proceed with CT scan of the abdomen to ensure the gut remains viable. 3. Continue to cycle BiPAP as needed. 4. Continue Clinimix pending tolerance of tube feeds. 5. Agree with anticoagulation to be directed by Cardiology. cc: MD Meño Roth MD
--- NOTE | 2018-11-24 16:16 | NEPHROLOGY PROGRESS NOTE ---
DATE: 11/24/2018 SUBJECTIVE: He is on BiPAP today. He is arousable and looks at me, but does not answer questions. OBJECTIVE: Vital Signs: Blood pressure 147/99, heart rate 98, respirations 15. Afebrile. General: No acute distress. Skin: Warm and dry. Neck: Neck veins are not appreciated. Heart: Regular. Lungs: Equal with crackles. Abdomen: Soft, nontender. Bowel sounds are not appreciated. Extremities: 2+ edema. No clubbing or cyanosis. IMPRESSION: Acute kidney injury. No recovery. He has good urine output however. SLED today using a 3 K bath. Goal of 4 to 6 L as his blood pressure allows. cc: MD Meño Lopez MD
[2018-11-24] MEDS: ZOFRAN IV PRN (19:15)
[2018-11-24 22:04] LABS: ALLEN TEST YES; BLOOD TYPE ARTERIAL; HCO3-(ACT) 21.8 mmoll (20.0-26.0); METHB 1.1 % (0.0-1.5); O2(CT) 15.9 mL/dL (15.0-23.0); O2HB 96.9 % (95.0-99.0); PCO2(98.6) 44 mmHg (35-45); PO2(98.6) 136 mmHg (60-100); SAMPLE BLOOD; SAO2 99.4 % (95.0-100.0); THB 11.5 g/dL (11.5-17.4); pH(98.6) 7.31 (7.35-7.45)
[2018-11-24 22:06] LABS: MODALITY BI PAP
[2018-11-24] MEDS: PROTONIX IV SCH (22:36)
[2018-11-25] MEDS: HEPARIN SUBQ SCH ×3 (00:57→17:07)
[2018-11-25] MEDS: CLINIMIX E 4.25%-5% SOLUTION 1,000 ML IV SCH ×2 (00:58→12:51)
[2018-11-25] MEDS: ZOSYN 2.25 GM in NS 50 ML IV SCH ×3 (01:01→17:07)
[2018-11-25] MEDS: MORPHINE IV PRN ×5 (01:12→18:06)
[2018-11-25 05:02] LABS: HEMATOCRIT 35.2 % (42.0-52.0); HEMOGLOBIN 11.5 g/dL (14.0-18.0); MCHC 32.7 g/dL (33-37); MCV 91.9 FL (81-99); MPV 11.2 FL (7.4-10.4); RBC 3.83 XMIL (4.7-6.1); RDW 16.1 % (11.5-14.5); WBC 15.35 X1000 (4.8-10.8)
[2018-11-25 05:19] LABS: ALLEN TEST YES; BE -5.3 mmoll (-3.0-3.0); BLOOD TYPE ARTERIAL; HCO3-(ACT) 20.8 mmoll (20.0-26.0); METHB 1.4 % (0.0-1.5); O2HB 96.4 % (95.0-99.0); PCO2(98.6) 41 mmHg (35-45); PO2(98.6) 140 mmHg (60-100); SAMPLE BLOOD; SAO2 99.4 % (95.0-100.0); THB 11.6 g/dL (11.5-17.4); pH(98.6) 7.31 (7.35-7.45)
[2018-11-25 05:20] LABS: MODALITY BI PAP
[2018-11-25 05:27] LABS: ALBUMIN 2.7 g/dL (3.5-5.0); CALCIUM 8.4 mg/dL (8.8-10.2); POTASSIUM 4.4 mmol/L (3.5-5.1); TOTAL BILIRUBIN 4.34 mg/dL (0.20-1.00); TOTAL PROTEIN 5.4 g/dL (6.3-8.3)
--- NOTE | 2018-11-25 07:45 | Diag Imaging Result Doc PS360 ---
CHEST-PORTABLE - 11/25/2018 INDICATION: respiratory failure COMPARISON: 11/24/2018 FINDINGS: Stable nasogastric tube and right central line. Stable significant cardiomegaly. Pulmonary vascularity is normal. Stable platelike atelectasis at the right hilum. Stable minimal infiltrate in the lingula. No pneumothorax or large pleural effusion. IMPRESSION: No change from prior. Electronically signed by Isaias Frederick 11/25/2018 7:43 AM
[2018-11-25] MEDS: ATIVAN IV PRN ×2 (10:27→15:48)
--- NOTE | 2018-11-25 11:18 | PULMONOLOGY PROGRESS NOTE ---
DATE: 11/25/2018 SUBJECTIVE: The patient is currently on BiPAP. He attempts to communicate when he is addressed by name. OBJECTIVE: Blood pressure 128/85 heart rate respiratory rate 14, oxygen saturation 99%. HEENT pupils are equal and reactive. Oropharynx evaluation is limited with BiPAP in place. Neck is supple/ chest reveals good air entry bilaterally without wheezing or rhonchi. Cardiac exam S1-S2. Abdomen reveals mild increase in tympany. Bowel sounds are present but diminished. Extremities reveal 1+ peripheral edema. LABORATORIES: White blood count 15.3, hemoglobin 11.5, platelet count 205,000. Sodium 138, potassium 4.4 chloride 108 bicarbonate 21, BUN 32, creatinine 2.0, bilirubin 4.3, AST 44, ALT 187, total protein 5.4, albumin 2.7. Arterial blood gas, pH 7.31, pCO2 of 41, PO2 of 140 on BiPAP. Chest x-ray reveals cardiomegaly, minimal infiltrate in the lingula and atelectasis in the right hilum. IMPRESSION: A 58-year-old with: 1. Acute hypoxemic respiratory failure. 2. Acute hypercapnic respiratory failure. 3. 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 4. Status post embolectomy of the superior mesenteric artery for bowel ischemia. 5. Status post cardiac arrest. 6. Acute renal failure. 7. Acute liver failure. 8. Encephalopathy, possible anoxic. RECOMMENDATIONS: 1. Continue to cycle BiPAP at bedtime and p.r.n. We will remove BiPAP this morning to better assess his mental status. 2. Continue tube feeds. His residuals remain low at this time. 3. Continue Clinimix. 4. Anticoagulation to be determined by Cardiology. cc: MD Meño Roth MD
--- NOTE | 2018-11-25 18:25 | PROGRESS NOTE ---
DATE: 11/25/2018 SUBJECTIVE: Mr. Niko Richmond is status post superior mesenteric artery embolectomy. He remains in the ICU. He has been extubated. He is receiving tube feeding and also some IV Clinimix. OBJECTIVE: His heart rate is 107, blood pressure 123/88, O2 saturation 100%. He is afebrile. He is on IV Zosyn. His white blood cell count remains at 15. Hematocrit is 35%. BUN and creatinine are 32 and 2. Liver function tests are elevated, but slowly improving. Supportive care continues. His midline incision appears to be intact without complication. cc: MD Meño Sierra MD
[2018-11-25] MEDS: PROTONIX IV SCH (21:38)
[2018-11-26] MEDS: MORPHINE IV PRN ×3 (02:04→12:33)
[2018-11-26] MEDS: HEPARIN SUBQ SCH ×3 (02:05→16:17)
[2018-11-26] MEDS: CLINIMIX E 4.25%-5% SOLUTION 1,000 ML IV SCH ×2 (02:05→16:16)
[2018-11-26] MEDS: ZOSYN 2.25 GM in NS 50 ML IV SCH ×3 (02:05→18:08)
[2018-11-26] MEDS: ATIVAN IV PRN ×3 (04:36→13:05)
[2018-11-26 05:01] LABS: ALLEN TEST YES; BE -6.3 mmoll (-3.0-3.0); BLOOD TYPE ARTERIAL; O2HB 95.8 % (95.0-99.0); PCO2(98.6) 40 mmHg (35-45); PO2(98.6) 103 mmHg (60-100); SAMPLE BLOOD; SAO2 97.4 % (95.0-100.0)
[2018-11-26 05:02] LABS: MODALITY BI PAP
[2018-11-26 05:59] LABS: HEMATOCRIT 34.4 % (42.0-52.0); MCH 29.6 PG (27-31); MCV 92.7 FL (81-99); MPV 11.7 FL (7.4-10.4); RBC 3.71 XMIL (4.7-6.1); RDW 16.5 % (11.5-14.5); WBC 14.69 X1000 (4.8-10.8)
[2018-11-26 06:34] LABS: ALB/GLOB RATIO 0.9; ALBUMIN 2.7 g/dL (3.5-5.0); CREATININE 2.9 mg/dL (0.7-1.2); POTASSIUM 4.8 mmol/L (3.5-5.1); TOTAL BILIRUBIN 5.34 mg/dL (0.20-1.00); TOTAL PROTEIN 5.6 g/dL (6.3-8.3)
--- NOTE | 2018-11-26 07:42 | Diag Imaging Result Doc PS360 ---
EXAM: CHEST-PORTABLE INDICATION: respiratory failure TECHNIQUE: One view COMPARISON: 11/25/2018 FINDINGS: Support tubes and lines are in stable positions. Lung volumes are slightly lower than the previous study. Nonetheless, the mild atelectasis in the right perihilar region has improved. The mild lingular consolidation also appears less dense. No new consolidation is identified. Cardiac silhouette is stable. IMPRESSION: Interval slight improvement. Electronically signed by Vernon Arriola 11/26/2018 7:39 AM
[2018-11-26] MEDS ORDERED: NS 2,000 ML MISC PRN (07:48)
--- NOTE | 2018-11-26 09:58 | EKG Report ---
Test Performed on : 11/24/2018 6:19:38 PM Test Reason : TACHYCARDIA Blood Pressure : / mmHG Vent. Rate : 142 BPM Atrial Rate : 142 BPM P-R Int : 148 ms QRS Dur : 092 ms QT Int : 276 ms P-R-T Axes : 065 052 090 degrees QTc Int : 424 ms Sinus tachycardia. Possible Left atrial enlargement Low voltage QRS Septal infarct , age undetermined ST & T wave abnormality, consider lateral ischemia Abnormal ECG When compared with ECG of 22-NOV-2018 06:59, Vent. rate has increased BY 54 BPM Septal infarct is now present ST now depressed in Lateral leads Inverted T waves have replaced nonspecific T wave abnormality in Lateral leads Confirmed by Jn COSBY, Patel ([id number]) on 11/27/2018 8:58:10 AM
[2018-11-26] MEDS: D50W 250 ML, AMINOSYN 15% 500 ML, LIPOSYN 20% 250 ML MISC SCH ×3 (10:32)
--- NOTE | 2018-11-26 10:37 | NEPHROLOGY PROGRESS NOTE ---
DATE: 11/26/2018 SUBJECTIVE: Patient has been placed on nasal cannula trial off of the BiPAP. Currently tolerating. He will open his eyes but does not answer questions or follow commands with significant verbal and tactile stimuli. OBJECTIVE: Vital Signs: Temperature 97.7 degrees, pulse 103 respiratory rate 15, blood pressure 128/86. Intake 2.3 L. Output 455 mL. PHYSICAL EXAMINATION: General: This is a middle-aged gentleman resting in bed. Minimal responsiveness. HEENT: Normocephalic, atraumatic. His oral mucosa appears dry. He has a nasal cannula in place. Neck: Supple. He has trace JVD. Cardiovascular: Tachycardic without murmur. Pulmonary: Decreased breath sounds. He is on nasal cannula. Does have some scattered rhonchi. Abdomen: Soft, with positive bowel sounds. : Odell catheter. Extremities: He has 1+ edema. Integumentary: Skin is warm and dry. LAB DATA: WBC of 14.6, hemoglobin 11. Sodium 138, potassium 4.8, CO2 19, creatinine 2.9. ASSESSMENT AND PLAN: Acute on chronic kidney disease without recovery. Urine output is satisfactory. We will plan to dialyze him on SLED today with a 4 K bath, 4 to 6 L fluid removal as tolerated. If the cumulative I's and O's are correct, the patient remains about 9 L positive since admission. Dictated by LYDIA Kennedy for Geo Quick MD Face to face encounter, data reviewed, discussed with Binh Bush on 11/26/18. I agree with the above assessment and plan of care. cc: MD Meño Lopez MD [facility]
[2018-11-26] MEDS ORDERED: DILAUDID IV ONE (13:15)
--- NOTE | 2018-11-26 16:06 | PULMONOLOGY PROGRESS NOTE ---
DATE: 11/26/2018 SUBJECTIVE: The patient is somnolent but arousable. Opens his eyes. He does not communicate. Currently is on nasal cannula without increased work of breathing. OBJECTIVE: Vital Signs: Blood pressure 153/92, heart rate 117, respiratory rate 26, oxygen saturation 100%. HEENT: Pupils are equal. Oropharynx appears clear. Neck: Supple. Chest: Reveals good air entry bilaterally without wheezing or rhonchi. Cardiac: Normal S1, normal S2, increased rate. Abdomen: Soft with positive bowel sounds. Extremities: Reveal trace to 1+ peripheral edema. LABORATORY DATA: Chest x-ray reveals shallow inspiration, but decreased atelectasis in the right mid lung and decreased consolidation in the lingula. Arterial blood gas: pH 7.30, pCO2 of 40, PO2 of 103. Sodium 138, potassium 4.8, chloride 105, bicarbonate 19, anion gap 14, BUN 57, creatinine 2.9, bilirubin 5.3, AST 46, ALT 148, alkaline phosphatase 133. IMPRESSION: A 58-year-old with 1. Hypoxemic respiratory failure. 2. Hypercapnic respiratory failure. 3. Status post cardiopulmonary arrest. 4. Encephalopathy, possibly related to liver dysfunction, renal failure, or anoxia. 5. Status post embolectomy of the superior mesenteric artery for bowel ischemia. 6. Left ventricular clot present. 7. Acute renal failure. 8. Acute liver failure. DISCUSSION: A 58-year-old with problems outlined above. His bilirubin has slightly increased, but his transaminases appear stable to improved. Chest x-ray is almost clear. Hopefully, mental status will improve with improvement in renal function and liver function, but this may represent an anoxic event. PLAN: 1. Continue to cycle BiPAP at bedtime and p.r.n. 2. Continue tube feeds. If no increased residual by tomorrow, Nepro will be increased. 3. Overall prognosis appears guarded. cc: MD Meño Roth MD
--- NOTE | 2018-11-26 18:01 | PROGRESS NOTE ---
DATE: 11/26/2018 SUBJECTIVE: Mr. Richmond remains extubated. He is getting some tube feedings although at a slow rate. He seems to be tolerating those. He is having some fluid leak from his midline incision. It has some serous fluid, edematous fluid. He is sleeping at this time. I spoke to his at the bedside. His midline incision seems to be healing well except for the fluid. He remains critically ill and requiring dialysis. OBJECTIVE: His heart rate is 115, blood pressure 117/86, O2 saturation is 100% on 30% flow. He does have a Odell is making some urine. His white blood cell count is coming down. It is 14.7. Hematocrit is 34%. BUN and creatinine 57 and 2.9. Liver function tests were elevated but they have been elevated. There is no big increase on that. His base deficit is 6. Chest x-ray shows some slight improvement in his lung volumes. PLAN: Continue supportive care. cc: MD Meño Sierra MD
[2018-11-26] MEDS: DILAUDID IV PRN ×2 (19:58→22:13)
[2018-11-26] MEDS: PROTONIX IV SCH (22:13)
[2018-11-27] MEDS: ATIVAN IV PRN ×5 (00:42→22:16)
[2018-11-27] MEDS: HEPARIN SUBQ SCH ×3 (00:43→17:00)
[2018-11-27] MEDS: ZOSYN 2.25 GM in NS 50 ML IV SCH ×3 (03:09→18:30)
[2018-11-27] MEDS: CLINIMIX E 4.25%-5% SOLUTION 1,000 ML IV SCH ×2 (03:10→16:00)
[2018-11-27] MEDS: DILAUDID IV PRN ×6 (03:11→21:22)
[2018-11-27 04:59] LABS: ALLEN TEST YES; BE -7.8 mmoll (-3.0-3.0); BLOOD TYPE ARTERIAL; HCO3-(ACT) 18.9 mmoll (20.0-26.0); PCO2(98.6) 35 mmHg (35-45); PO2(98.6) 120 mmHg (60-100); SAMPLE BLOOD; pH(98.6) 7.31 (7.35-7.45)
[2018-11-27 05:01] LABS: MODALITY BI PAP
[2018-11-27 05:48] LABS: HEMATOCRIT 33.8 % (42.0-52.0); HEMOGLOBIN 10.8 g/dL (14.0-18.0); MCV 93.9 FL (81-99); MPV 11.4 FL (7.4-10.4); RBC 3.6 XMIL (4.7-6.1); RDW 17.7 % (11.5-14.5); WBC 14.91 X1000 (4.8-10.8)
[2018-11-27 06:07] LABS: ALBUMIN 2.8 g/dL (3.5-5.0); CALCIUM 8.3 mg/dL (8.8-10.2); CREATININE 2.1 mg/dL (0.7-1.2); POTASSIUM 5.3 mmol/L (3.5-5.1); TOTAL BILIRUBIN 5.7 mg/dL (0.20-1.00); TOTAL PROTEIN 5.6 g/dL (6.3-8.3)
--- NOTE | 2018-11-27 07:09 | Diag Imaging Result Doc PS360 ---
EXAM: CHEST-PORTABLE 11/27/2018 HISTORY: respiratory failure TECHNIQUE: AP portable at 0521 COMMENT: There is a right internal jugular central venous catheter with its tip in the superior vena cava and an NG tube which apparently passes below the diaphragm into the stomach. The heart size is enlarged. There is interstitial opacity generally. Compared to 11/26/2018 there has been no significant change in the appearance of the chest. IMPRESSION: Stable chest. Electronically signed by Reggie Parker 11/27/2018 7:07 AM
--- NOTE | 2018-11-27 08:15 | NEPHROLOGY PROGRESS NOTE ---
DATE: 11/27/2018 SUBJECTIVE: He is somewhat agitated this morning and constantly moving. He did not interact. OBJECTIVE: Vital Signs: Blood pressure 122/82, heart rate 97, respirations 14, afebrile. General: No acute distress. Skin: Warm and dry. Conjunctivae are pink. Neck: Neck veins are not visible. Heart: Regular and tachycardic. Lungs: Have equal breath sounds. A few scattered crackles. Abdomen: The abdomen remains distended, soft. Bowel sounds not appreciated. Extremities: 2+ edema. No clubbing or cyanosis. INTAKE AND OUTPUT: 1.8 L. Dialysis output is not recorded. IMPRESSION: Acute kidney injury. No recovery as of yet. Still significant volume overload. SLED today for 8 hours using a 4 potassium bath and a goal of 6 L ultrafiltration as tolerated. Thank you end dictation on delayed [id number]. cc: MD Meño Lopez MD
[2018-11-27] MEDS ORDERED: NS 2,000 ML MISC PRN (09:25)
--- NOTE | 2018-11-27 16:58 | PROGRESS NOTE ---
DATE: 11/27/2018 SUBJECTIVE: Mr. Niko Richmond is a 58-year-old white male, status post superior mesenteric artery embolectomy. He remains in the ICU critically ill, but he is off the ventilator requiring BiPAP. He is n.p.o. He is getting some amino acids IV. He is on low-dose Zosyn. OBJECTIVE: Vital Signs: His heart rate is 110 to 120, blood pressure 128/91, O2 saturation 97%. Genitourinary: He has a Odell in place. He is making some urine, but he is requiring hemodialysis. Is stable. General: I was able to talk to his yesterday. Skin: His midline incision is weeping some serous fluid, but it is intact. Abdomen: Distended. LABORATORY DATA: His white blood cell count is 15. Hematocrit is 34%. BUN and creatinine 46 and 2.1. Liver function tests were elevated, but they have been elevated. His total bilirubin is 5.7. His blood gas shows a base deficit of 7.8. Chest x-ray is stable. PLAN: Continue supportive care, and Dr. Godinez returns tomorrow. cc: MD Meño Sierra MD
--- NOTE | 2018-11-27 20:39 | PULMONOLOGY PROGRESS NOTE ---
DATE: 11/27/2018 SUBJECTIVE: The patient is arousable. He has periods of calm to combative and moaning. He will not follow commands. OBJECTIVE: Vital Signs: The patient has been afebrile for the last 24 hours. Blood pressure 134/81, heart rate 111, respiratory rate 17, O2 saturation 97% on 4 L per nasal cannula. HEENT: Pupils are equal and reactive. Oropharynx appears clear. Neck: Is supple. Chest: Reveals occasional rhonchi bilaterally. Cardiac: S1-S2. Abdomen: Is soft with positive bowel sounds. Extremities: Without edema. LABORATORIES: White blood count 14.9, hemoglobin 10.8, platelet count 229,000. Arterial blood gas, pH 7.31, pCO2 of 35, PO2 of 120. Chest x-ray is relatively clear. IMPRESSION: A 58-year-old with 1. Hypoxemic respiratory failure. 2. Status post cardiopulmonary arrest. 3. Encephalopathy which persists. 4. Acute renal failure. 5. Acute liver failure with continued elevation in bilirubin. 6. Left ventricular clot with embolic phenomenon to the mesenteric artery leading to bowel ischemia. PLAN: 1. Continue supportive care. 2. Continue tube feeds as tolerated. 3. Overall prognosis appears guarded. cc: MD Meño Roth MD
[2018-11-27] MEDS: SODIUM CHLORIDE 0.9% INJ SCH (21:22)
[2018-11-27] MEDS: PROTONIX IV SCH (21:22)
[2018-11-28] MEDS: HEPARIN SUBQ SCH ×2 (02:12→09:48)
[2018-11-28] MEDS: DILAUDID IV PRN ×7 (02:13→21:53)
[2018-11-28] MEDS: ZOSYN 2.25 GM in NS 50 ML IV SCH ×2 (02:14→09:35)
[2018-11-28] MEDS: ATIVAN IV PRN (02:36)
[2018-11-28 04:55] LABS: ALLEN TEST YES; BE -5.8 mmoll (-3.0-3.0); BLOOD TYPE ARTERIAL; HCO3-(ACT) 20.5 mmoll (20.0-26.0); METHB 0.9 % (0.0-1.5); O2(CT) 5.3 mL/dL (15.0-23.0); PCO2(98.6) 34 mmHg (35-45); PO2(98.6) 103 mmHg (60-100); SAMPLE BLOOD; THB 3.7 g/dL (11.5-17.4); pH(98.6) 7.36 (7.35-7.45)
[2018-11-28 04:56] LABS: MODALITY BI PAP
[2018-11-28 05:32] LABS: HEMATOCRIT 32.4 % (42.0-52.0); HEMOGLOBIN 10.8 g/dL (14.0-18.0); MCH 29.8 PG (27-31); MCHC 33.3 g/dL (33-37); MCV 89.3 FL (81-99); MPV 11.3 FL (7.4-10.4); RBC 3.63 XMIL (4.7-6.1); RDW 17.4 % (11.5-14.5); WBC 14.6 X1000 (4.8-10.8)
[2018-11-28 05:55] LABS: ALBUMIN 2.8 g/dL (3.5-5.0); CALCIUM 8.5 mg/dL (8.8-10.2); CREATININE 2.3 mg/dL (0.7-1.2); POTASSIUM 4.9 mmol/L (3.5-5.1); TOTAL BILIRUBIN 5.62 mg/dL (0.20-1.00); TOTAL PROTEIN 5.6 g/dL (6.3-8.3)
[2018-11-28] MEDS ORDERED: NS 2,000 ML MISC PRN (06:22)
[2018-11-28] MEDS ORDERED: HEPARIN IV ONE (07:00)
--- NOTE | 2018-11-28 07:27 | Diag Imaging Result Doc PS360 ---
EXAM: CHEST-PORTABLE HISTORY: respiratory failure TECHNIQUE: Portable chest single view COMPARISON: 11/27/2018 FINDINGS: No change in the right jugular line or the nasogastric tube. Heart is mildly enlarged. Decreased pulmonary edema compared to the prior study. No pleural effusions identified. No consolidation. IMPRESSION: Mild interval improvement. Electronically signed by Maykel Martínez 11/28/2018 7:25 AM
[2018-11-28] MEDS: D50W 250 ML, AMINOSYN 15% 500 ML, LIPOSYN 20% 250 ML MISC SCH ×3 (08:43)
--- NOTE | 2018-11-28 09:34 | NEPHROLOGY PROGRESS NOTE ---
DATE: 11/28/2018 SUBJECTIVE: He is groaning, lying in bed, still on BiPAP. OBJECTIVE: Blood pressure 141/85, heart rate 104, respiration 15, afebrile. Intake 2.3 L, output 4.4 L. PHYSICAL EXAMINATION: General: No acute distress. Skin: Warm and dry. HEENT: Conjunctiva are pink. Neck: Neck veins are not appreciated. Heart: Regular and tachycardic. Lungs: Equal, a few scattered rhonchi. Abdomen: Soft, nontender. Bowel sounds are audible. Extremities: Have 2+ edema, no clubbing or cyanosis. IMPRESSION: Acute kidney injury. No recovery. SLED today using 4K bath and 32 bicarbonate. Goal of 3-4 L ultrafiltration as blood pressure allows. cc: MD Meño Lopez MD
[2018-11-28] MEDS ORDERED: REGLAN IV SCH ×2 (10:00→11:00)
--- NOTE | 2018-11-28 11:14 | GENERAL SURGERY PROGRESS NOTE ---
DATE: 11/28/2018 SUBJECTIVE: He is now 11 days after his laparotomy and embolectomy. OBJECTIVE: Heart rate is 115, blood pressure 153/97. He is on 30% FiO2. He is moaning. He does not respond when spoken to. INTAKE AND OUTPUT: His intake was recorded as 2300, output 4362. DIAGNOSTIC STUDIES: His pH 7.36, pCO2 of 34, PO2 of 103, base excess -5.8. His BUN 48, creatinine 2.3, and he is on dialysis currently. White count is 14,600, hemoglobin 10.8, hematocrit 32.4. He is continuing on Zosyn. ASSESSMENT: His urologic status remains questionable, and he is not responsive as of yet. He has reportedly had some episodes of ventricular tachycardia when labs are being drawn. He is on FiO2 of 30% and seems to be oxygenating satisfactorily on mat. His GI tract is not working yet as he had a high residual this morning with his tube feedings. We will give him Reglan in order to help his stomach empty. We will continue with supportive care. His is considering a different code status. cc: Meño Godinez MD
[2018-11-28 11:32] LABS: CREATININE 1.3 mg/dL (0.7-1.2); MAGNESIUM 1.7 mg/dL (1.5-2.7); PHOSPHORUS 1.5 mg/dL (2.7-4.5); POTASSIUM 4.6 mmol/L (3.5-5.1)
--- NOTE | 2018-11-28 14:03 | PULMONOLOGY PROGRESS NOTE ---
DATE: 11/28/2018 SUBJECTIVE: The patient is lying in bed. He is groaning. He will not follow commands. He is not tolerating tube feeds. OBJECTIVE: Vital Signs: Blood pressure 144/87, heart rate 117, respiratory rate 14, oxygen saturation 100%. HEENT: Pupils are equal and reactive. Oropharynx appears clear, but dry. Neck: Supple. Chest: Reveals good air entry bilaterally. Cardiac exam: S1, S2. Abdomen: Moderately distended. Extremities: Without edema. LABS AND X-RAYS: Chest x-ray reveals cardiomegaly, otherwise no acute changes. White blood count 14.6, hemoglobin 10.8, platelet count 222,000. Sodium 137, potassium 4.6, chloride 106, bicarbonate 20. BUN 34, creatinine 1.3, glucose 262, magnesium 8.0, phosphorus 1.5, bilirubin 5.6. AST 64, ALT 102. Arterial blood gas: A pH of 7.36, pCO2 of 34, PO2 of 103. IMPRESSION: A 58-year-old with: 1. Status post cardiopulmonary arrest. 2. Left ventricular dysfunction with left ventricular clot. 3. Status post embolectomy of the mesenteric artery. 4. Hypoxemic respiratory failure. 5. Ongoing encephalopathy. 6. Acute renal failure. 7. Acute liver failure with continued hyperbilirubinemia. PLAN: 1. Check KUB of the abdomen, given mild distention and decreased tolerance of tube feeds. 2. Consider total parenteral nutrition or peripheral parenteral nutrition. 3. Continue cardiac management per Dr. Garcia. 4. Continue renal management per Dr. Quick. 5. With heart, liver, and cardiac failure, patient's prognosis is guarded to poor. cc: MD Meño Roth MD
[2018-11-28] MEDS: ATROPINE 1 % OPHTH SOLN SL PRN (22:02)
[2018-11-29] MEDS: ATIVAN IV PRN ×4 (00:38→15:31)
[2018-11-29] MEDS: DILAUDID IV PRN ×4 (01:30→12:36)
[2018-11-29] MEDS: ATROPINE 1 % OPHTH SOLN SL PRN ×3 (07:58→15:32)
[2018-11-29 18:08] VITALS: BP 79/51
--- NOTE | 2018-11-29 18:39 | GENERAL SURGERY PROGRESS NOTE ---
DATE: 11/29/2018 Mrs. Richmond has decided to withdraw care because of his poor prognosis. Hospice has been called in. So she currently is at the bedside and he continues to breathe adequately with O2 saturation of 91%, but he is having irregular heart beat. We will continue to support him as we are doing. cc: Meño Godinez MD
--- NOTE | 2018-11-29 19:16 | GENERAL SURGERY PROGRESS NOTE ---
DATE: 11/29/2018 Mr. Richmond has no blood pressure or pulse, and has no spontaneous respiratory activity. He is pronounced at 4:05 p.m. on November 29. His is in attendance. cc: Meño Godinez MD
--- NOTE | 2018-12-04 12:19 | OPERATIVE NOTE ---
PROCEDURE DATE: 11/20/2018 PROCEDURES: Vas-Cath placement right internal jugular vein with ultrasound guidance. SURGEON: Meño Godinez MD. PREOPERATIVE DIAGNOSES: 1. Acute renal failure. 2. Post cardiac arrest. DESCRIPTION OF PROCEDURE IN DETAIL: The patient is on the ventilator, placed in Trendelenburg. The right side of the neck and upper anterior chest were prepped and draped in a sterile fashion. We used ultrasound to identify the vein. We anesthetized the skin. Made a small stab incision and accessed the right internal jugular vein. We passed the guidewire. We then dilated the tract and passed the Trialysis catheter. Blood came back in each lumen spontaneously. We flushed each lumen with saline, secured the flange to the skin with nylon. A bowel step patch was placed at the exit site. A sterile OpSite dressing was applied. He tolerated it well. cc: Meño Godinez MD
--- NOTE | 2018-12-04 16:22 | DISCHARGE SUMMARY ---
ADMISSION DATE: 11/18/2018 DISCHARGE DATE: 11/29/2018 PRIMARY DISCHARGE DIAGNOSES: 1. Multiorgan failure. 2. Superior mesenteric artery embolus. 3. Intraventricular thrombus. 4. Acute renal failure. 5. Acute respiratory failure. PRIMARY PROCEDURE: 1. Exploratory laparotomy with the superior mesenteric artery embolectomy on 11/17. 2. November 20 was the right internal jugular vein Vas-Cath placement. 3. SLED dialysis. CONSULTATIONS: 1. Dr. Garcia cardiology. 2. Dr. Quick of nephrology. 3. Dr. Peterson of pulmonology. HISTORY: This is a 58-year-old gentleman who had really neglected his health who presented to the emergency department at [place] with abdominal pain that had gotten into the point through the night that he needed medical attention. A CT scan that was done revealing a clot in his heart as well as occlusion of his SMA. At the time of his admission is carbon dioxide levels was 17 on chemistry. His white count was 15, 000, hemoglobin 17.6. BUN 23, creatinine 1.3. CPK was 330 proBNP was 2630. His lactate was also elevated up to about 12. He was then transferred to [facility], [place] and taken the operating room that night. Intraoperatively he suffered a cardiac arrest requiring compressions. We also did an open embolectomy. Postoperatively, he remained on the ventilator. Postoperatively his lactate level fell. His elevated LFTs improved all consistent with reperfusion of his GI tract. Dr. Peterson was consulted because of his pulmonary status and his critical care. He also had evidence of an acute kidney injury. Dr. Quick was consulted. He was started on dialysis on the but he showed no evidence of kidney recovery. He remained intubated and on the ventilator for approximately a week and was extubated I believe on the 22 of November, so he remained intubated for 5 days post operative only. However when he was extubated on the he did tolerate the extubation and did satisfactorily. Once his sedation was taken off even though his pupils did react he really regain no meaningful neurologic function and made groaning noises but never was responsive to voice or command. His kidneys also did not show recovery. The family then decided by the that it was best to withdraw care because of his poor prognosis regarding his neurologic outcome. So they asked to withdraw any meaningful support and allow hospice to care for him. On 11/29 he then developed bradycardia and asystole and he was allowed to pass naturally. cc: Meño Godinez MD
== END 2018-11-29 16:05 | disposition expired | DRG 356 ==
LOC: P.ED 16:17 → ICU 20:35
PROVIDERS: ADMIT Surgery; ATTEND Surgery
CPT/HCPCS: 70450; 71010; 71020; 71045; 71046; 74177; 80048; 80053; 80074; 81001; 82150; 82550; 82553; 82805; 83605; 83735; 83880; 84100; 84478; 84484; 85014; 85018; 85025; 85027; 85379; 85610; 85730; 86850; 86900; 86901; 86920; 88304; 93005; 93010; 93306; 94002; 94003; 94150; 94640; 94660; 94761; 96365; 96366; 96375; 96376; 99285; A9270; C8924; C8929; C9113; J0171; J0330; J1170; J1644; J1940; J2060; J2250; J2270; J2405; J2543; J2765; J3475; J7030; J7050; J7060; P9047; Q9957; Q9967; Q9968; S0164